=== PATIENT | male | born 1950 | race Caucasian/White ===

== ENCOUNTER 2018-04-03 08:49 | Emergency (ER) | payer OTHER ==
[2018-04-03] MEDS: BENZONATATE 100 MG CAP PO (09:31)
[2018-04-03] MEDS: IPRATROPIUM 0.5MG/ALBUTEROL 2.5MG INH SOL UD 3ML (DUONEB)(J7620) NEB (09:33)
[2018-04-03 10:21] LABS: BASO % 0.3 % (0.0-1.0); EOS # 0.2 10^3/uL (0.0-0.50); EOS % 2.2 % (0.0-3.0); HEMATOCRIT 48.3 % (42.0-52.0); HEMOGLOBIN 15.9 g/dl (13.5-17.5); IMMATURE GRANULOCYTE % 0.3 % (0-3.0); LYMPH # 2.3 10^3/uL (1.5-4.5); LYMPH % 28.9 % (24.0-44.0); MEAN CORPUSCULAR HEMOGLOBIN 27.7 pg (27.0-33.0); MEAN CORPUSCULAR HGB CONC 32.9 g/dl (32.0-36.5); MEAN CORPUSCULAR VOLUME 84.3 fl (80.0-96.0); MONO # 0.6 10^3/uL (0.0-0.8); NEUTROPHILS # 4.9 10^3/uL (1.8-7.7); NEUTROPHILS % 61.3 % (36.0-66.0); PLATELET COUNT, AUTOMATED 221 10^3/uL (150-450); RED BLOOD COUNT 5.73 10^6/uL (4.30-6.10); RED CELL DISTRIBUTION WIDTH 14.9 % (11.5-14.5); WHITE BLOOD COUNT 7.9 10^3/uL (4.0-10.0)
[2018-04-03 10:53] LABS: POS COUNT POS FLAG
[2018-04-03 10:58] LABS: D-DIMER QUANT 367.2 ng/ml (<500)
[2018-04-03 11:11] LABS: ANION GAP 6 MEQ/L (8-16); BLOOD UREA NITROGEN 15 MG/DL (7-18); CALCIUM LEVEL 9.1 MG/DL (8.8-10.2); CARBON DIOXIDE LEVEL 31 MEQ/L (21-32); CHLORIDE LEVEL 101 MEQ/L (98-107); CPK CREATINE PHOSPHOKINASE 105 U/L (39-308); CREATININE FOR GFR 1.23 MG/DL (0.70-1.30); GLOMERULAR FILTRATION RATE > 60.0 (>42); GLUCOSE, FASTING 124 MG/DL (70-100); MB/CK RELATIVE INDEX 1.71 (< OR =4); NT-PRO BNP 45 PG/ML (<125); POTASSIUM SERUM 3.7 MEQ/L (3.5-5.1); SODIUM LEVEL 138 MEQ/L (136-145); TROPONIN I < 0.02 NG/ML (< 0.10)
== END 2018-04-03 13:28 | disposition home or self-care (01) ==
LOC: M ED 08:49
DX: J06.9 Acute upper respiratory infection, unspecified (principal); R60.9 Edema, unspecified; I10 Essential (primary) hypertension; Z79.899 Other long term (current) drug therapy; M79.89 Other specified soft tissue disorders
CPT/HCPCS: 71046

== ENCOUNTER 2018-07-31 04:10 | Emergency (ER) | payer MEDICARE, OTHER ==
[~2018-07-31] VITALS: Ht 180.3 cm; Wt 147.7 kg
[~2018-07-31 04:10] MED LIST: ATEN25TA PO; BENZ200C70 PO; HYDR12.55 PO; MUCI600T31 PO; PROAAER10 INH; ROBI1LIQ9 PO; TESS100C PO
[2018-07-31] MEDS ORDERED: ROSU20TA4 PO (04:22)
[2018-07-31] MEDS ORDERED: ASPI81CH32 PO (04:22)
[2018-07-31] MEDS ORDERED: METF500T13 PO (04:22)
[2018-07-31] MEDS ORDERED: ALLO100T PO (04:22)
[2018-07-31] MEDS ORDERED: INDO50CA PO (04:22)
[2018-07-31] MEDS ORDERED: ISOVUE-370 76% 100ML VIAL (Q9967) As Ordered ONE (05:15)
[2018-07-31 05:40] LABS: BASO % 0.2 % (0.0-1.0); EOS # 0.2 10^3/uL (0.0-0.50); EOS % 1.3 % (0.0-3.0); HEMATOCRIT 46.6 % (42.0-52.0); HEMOGLOBIN 15.1 g/dl (13.5-17.5); LYMPH # 1.7 10^3/uL (1.5-4.5); LYMPH % 13.8 % (24.0-44.0); MEAN CORPUSCULAR HEMOGLOBIN 27.4 pg (27.0-33.0); MEAN CORPUSCULAR HGB CONC 32.4 g/dl (32.0-36.5); MEAN CORPUSCULAR VOLUME 84.4 fl (80.0-96.0); MONO # 0.7 10^3/uL (0.0-0.8); MONO % 5.5 % (0.0-5.0); NEUTROPHILS # 9.9 10^3/uL (1.8-7.7); NEUTROPHILS % 78.9 % (36.0-66.0); PLATELET COUNT, AUTOMATED 273 10^3/uL (150-450); RED BLOOD COUNT 5.52 10^6/uL (4.30-6.10); WHITE BLOOD COUNT 12.6 10^3/uL (4.0-10.0)
[2018-07-31 05:51] LABS: INR 1.12; PROTHROMBIN TIME 14.6 SECONDS (12.1-14.4)
[2018-07-31 05:52] LABS: PARTIAL THROMBOPLASTIN TIME 34.9 SECONDS (25.4-37.6)
[2018-07-31 06:14] LABS: BLOOD UREA NITROGEN 14 MG/DL (7-18); CALCIUM LEVEL 8.8 MG/DL (8.8-10.2); CARBON DIOXIDE LEVEL 30 MEQ/L (21-32); CHLORIDE LEVEL 100 MEQ/L (98-107); CPK CREATINE PHOSPHOKINASE 93 U/L (39-308); GLOMERULAR FILTRATION RATE > 60.0 (>42); GLUCOSE, FASTING 144 MG/DL (70-100); MB/CK RELATIVE INDEX 1.83 (< OR =4); POTASSIUM SERUM 3.9 MEQ/L (3.5-5.1); SODIUM LEVEL 139 MEQ/L (136-145); TROPONIN I < 0.02 NG/ML (< 0.10)
--- NOTE | 2018-07-31 07:34 | REPVR ---
EXAM: CT Head Without Contrast EXAM DATE/TIME: 07/31/2018 5:08 AM CLINICAL HISTORY: 68 years old, male; Signs and symptoms; Malaise or fatigue; Additional info: CVA - nursing interventions must not delay CT TECHNIQUE: Axial computed tomography images of the head/brain without contrast. All CT scans at this facility use at least one of these dose optimization techniques: automated exposure control; mA and/or kV adjustment per patient size (includes targeted exams where dose is matched to clinical indication); or iterative reconstruction. COMPARISON: No relevant prior studies available. FINDINGS: Brain: Normal. No hemorrhage. No significant white matter disease. No edema. Ventricles: Normal. No ventriculomegaly. Bones/joints: Normal. No acute fracture. Sinuses: Normal as visualized. No acute sinusitis. Mastoid air cells: Normal as visualized. No mastoid effusion. Soft tissues: Normal. Other findings: Hemispheric volume loss. IMPRESSION: 1. No acute intracranial process. Electronically signed by: Caitlyn Hernadez On 07/31/2018 07:33:43 AM
[2018-07-31 07:40] VITALS: BP 118/71
--- NOTE | 2018-07-31 07:43 | REPVR ---
EXAM: CT Angiography Chest With Contrast EXAM DATE/TIME: 07/31/2018 5:08 AM CLINICAL HISTORY: 68 years old, male; Pain; Chest pain; Type not specified TECHNIQUE: Axial computed tomographic angiography images of the chest with intravenous contrast using CT angiography protocol. All CT scans at this facility use at least one of these dose optimization techniques: automated exposure control; mA and/or kV adjustment per patient size (includes targeted exams where dose is matched to clinical indication); or iterative reconstruction. Coronal and sagittal reformatted images were created and reviewed. MIP reconstructed images were created and reviewed. CONTRAST: 75 ml of iso administered intravenously. COMPARISON: CR PORTABLE CHEST X-RAY 07/31/2018 5:33 AM FINDINGS: Pulmonary arteries: Partial motion degradation. This limits detailed assessment of distal pulmonary arterial structures. While there is no definite evidence of dominant filling defect within the main pulmonary trunk or main right and left pulmonary arteries, and accurate assessment of distal segmental and subsegmental arteries cannot accurately be determined. Aorta: Normal. No aortic aneurysm. No aortic dissection. Lungs: Minor groundglass opacities within both lungs. Pleural space: Normal. No pneumothorax. No pleural effusion. Heart: Right to left ventricular ratio 0.9-1.0. Intraperitoneal space: Trace calcification thoracic aortic arch. Lymph nodes: Unremarkable. No enlarged lymph nodes. Bones/joints: And degenerative change of thoracic spine. Soft tissues: Unremarkable. IMPRESSION: 1. Excessive motion limits assessment of segmental and subsegmental arteries. For accurate determination or complete exclusion of pulmonary embolus, repeat examination would be required with appropriate breath-hold. 2. Degenerative changes thoracic spine. 3. Ground glass opacities bilaterally. 4. Cardiomegaly. Electronically signed by: Caitlyn Hernadez On 07/31/2018 07:43:17 AM
--- NOTE | 2018-07-31 08:12 | REP ---
clinical: Cerebrovascular accident . Comparison: 04/03/2018 the . Findings: The mediastinum and cardiac silhouette are stable. Cardiomegaly is again suggested. The lung goodson are clear without acute consolidation, effusion, or pneumothorax. Skeletal structures are intact. Impression: No acute cardiopulmonary process appreciated. Electronically Signed by Ashwin Hoffmann MD 07/31/2018 08:04 A
--- NOTE | 2018-08-01 09:13 | ECGEPIP ---
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
--- NOTE | 2018-08-01 12:03 | ED PDOC ---
Post-Departure Follow-Up dr kim faxed formal report of cta for fu Sylvia Jaime MD Aug 01, 2018 12:03
== END 2018-07-31 08:02 | disposition home or self-care (01) ==
LOC: M ED 04:10
DX: G47.00 Insomnia, unspecified (principal); R07.9 Chest pain, unspecified; Z79.899 Other long term (current) drug therapy; Z79.82 Long term (current) use of aspirin; Z79.84 Long term (current) use of oral hypoglycemic drugs
CPT/HCPCS: 70450; 71045; 71275; 80048; 82550; 82553; 84484; 85025; 85610; 85730; 86850; 86900; 86901; 93005; 93041; 94760; 99285; Q9967

== ENCOUNTER → 2018-08-03 | Outpatient (CLI) | payer MEDICARE ==
[~2018-08-03] MED LIST changes: +ALLO100T PO; +ASPI81CH32 PO; +INDO50CA PO; +METF500T13 PO; +ROSU20TA4 PO
--- NOTE | 2018-08-03 14:12 | REP ---
Clinical: Localized mass . Comparison: 07/31/2018 . Technique: PA and lateral. Findings: The mediastinum and cardiac silhouette are normal. The lung goodson are clear and without acute consolidation, effusion, or pneumothorax. The skeletal structures are intact and normal. Impression: 1. No acute cardiopulmonary process. Electronically Signed by Ashwin Hoffmann MD 08/03/2018 02:04 P
[2018-08-03 15:41] LABS: BASO % 0.2 % (0.0-1.0); EOS # 0.1 10^3/uL (0.0-0.50); EOS % 1.2 % (0.0-3.0); HEMATOCRIT 46.8 % (42.0-52.0); HEMOGLOBIN 14.7 g/dl (13.5-17.5); LYMPH # 1.8 10^3/uL (1.5-4.5); MEAN CORPUSCULAR HEMOGLOBIN 27.3 pg (27.0-33.0); MEAN CORPUSCULAR HGB CONC 31.4 g/dl (32.0-36.5); MONO # 0.5 10^3/uL (0.0-0.8); MONO % 5.4 % (0.0-5.0); NEUTROPHILS # 7.3 10^3/uL (1.8-7.7); NEUTROPHILS % 74.8 % (36.0-66.0); PLATELET COUNT, AUTOMATED 305 10^3/uL (150-450); RED BLOOD COUNT 5.38 10^6/uL (4.30-6.10); WHITE BLOOD COUNT 9.7 10^3/uL (4.0-10.0)
[2018-08-03 16:02] LABS: ALBUMIN 3.2 GM/DL (3.2-5.2); ALT/SGPT 36 U/L (12-78); BILIRUBIN,TOTAL 0.5 MG/DL (0.2-1.0); BLOOD UREA NITROGEN 13 MG/DL (7-18); CALCIUM LEVEL 8.9 MG/DL (8.8-10.2); CARBON DIOXIDE LEVEL 32 MEQ/L (21-32); CHLORIDE LEVEL 100 MEQ/L (98-107); CREATININE FOR GFR 1.16 MG/DL (0.70-1.30); FREE T4 1.12 NG/DL (0.76-1.46); GLOMERULAR FILTRATION RATE > 60.0 (>42); GLUCOSE, FASTING 128 MG/DL (70-100); POTASSIUM SERUM 4.2 MEQ/L (3.5-5.1); SODIUM LEVEL 140 MEQ/L (136-145); TOTAL PROTEIN 6.7 GM/DL (6.4-8.2)
== END ==
LOC: M WUC 13:50
PROVIDERS: ATTEND Physician Assistant
DX: R22.41 Localized swelling, mass and lump, right lower limb (principal); R53.83 Other fatigue

== ENCOUNTER → 2019-03-17 | Outpatient (CLI) | payer MEDICARE ==
[~2019-03-17] MED LIST changes: -ASPI81CH32 PO; +ASPI81CH33 PO; -INDO50CA PO; +INDO50CA91 PO; -ROSU20TA4 PO; +ROSU20TA5 PO
[2019-03-17 20:38] LABS: BASO % 0.3 % (0.0-1.0); EOS # 0.2 10^3/uL (0.0-0.5); EOS % 1.9 % (0.0-3.0); HEMATOCRIT 48.8 % (42.0-52.0); HEMOGLOBIN 15.5 g/dl (13.5-17.5); LYMPH # 2.4 10^3/uL (1.5-5.0); LYMPH % 22.6 % (24.0-44.0); MEAN CORPUSCULAR HEMOGLOBIN 28.7 pg (27.0-33.0); MEAN CORPUSCULAR HGB CONC 31.8 g/dl (32.0-36.5); MEAN CORPUSCULAR VOLUME 90.4 fl (80.0-96.0); MONO # 0.7 10^3/uL (0.0-0.8); MONO % 6.8 % (0.0-5.0); NEUTROPHILS # 7.2 10^3/uL (1.5-8.5); NEUTROPHILS % 68.1 % (36.0-66.0); PLATELET COUNT, AUTOMATED 277 10^3/uL (150-450); WHITE BLOOD COUNT 10.6 10^3/uL (4.0-10.0)
[2019-03-17 21:05] LABS: ALBUMIN 3.2 GM/DL (3.2-5.2); ALT/SGPT 30 U/L (12-78); BILIRUBIN,TOTAL 0.5 MG/DL (0.2-1.0); BLOOD UREA NITROGEN 13 MG/DL (7-18); CALCIUM LEVEL 9.2 MG/DL (8.8-10.2); CARBON DIOXIDE LEVEL 36 MEQ/L (21-32); CHLORIDE LEVEL 99 MEQ/L (98-107); CREATININE FOR GFR 0.96 MG/DL (0.70-1.30); FREE T4 1.01 NG/DL (0.76-1.46); GLOMERULAR FILTRATION RATE > 60.0 (>42); GLUCOSE, FASTING 96 MG/DL (70-100); POTASSIUM SERUM 4.1 MEQ/L (3.5-5.1); SODIUM LEVEL 141 MEQ/L (136-145); TOTAL PROTEIN 6.7 GM/DL (6.4-8.2)
[2019-03-20 00:06] LABS: Lyme Disease IgG/IgM Antibodie <0.91 ISR (0.00-0.90); Lyme Disease IgM Ab Quantitati <0.80 index (0.00-0.79)
== END ==
LOC: M WUC 17:39
PROVIDERS: ATTEND Physician Assistant
DX: R63.4 Abnormal weight loss (principal)

== ENCOUNTER 2019-05-03 08:34 | Inpatient (IN) | payer MEDICARE ==
[~2019-05-03] VITALS: Ht 177.8 cm; Wt 125.6 kg
[2019-05-03] MEDS ORDERED: ATEN50TA2 PO (08:47)
[2019-05-03] MEDS ORDERED: HYDR12CA PO (08:47)
[2019-05-03 09:12] LABS: BASO % 0.2 % (0.0-1.0); EOS # 0.1 10^3/uL (0.0-0.5); EOS % 1.4 % (0.0-3.0); LYMPH # 1.8 10^3/uL (1.5-5.0); LYMPH % 18.7 % (24.0-44.0); MEAN CORPUSCULAR HEMOGLOBIN 28.3 pg (27.0-33.0); MEAN CORPUSCULAR HGB CONC 31.6 g/dl (32.0-36.5); MEAN CORPUSCULAR VOLUME 89.4 fl (80.0-96.0); MONO # 0.6 10^3/uL (0.0-0.8); MONO % 6.5 % (0.0-5.0); NEUTROPHILS # 6.8 10^3/uL (1.5-8.5); NEUTROPHILS % 72.7 % (36.0-66.0); PLATELET COUNT, AUTOMATED 228 10^3/uL (150-450); RED BLOOD COUNT 5.59 10^6/uL (4.30-6.10); WHITE BLOOD COUNT 9.4 10^3/uL (4.0-10.0)
[2019-05-03 09:31] LABS: HEMOGLOBIN 15.8 g/dl (13.5-17.5)
[2019-05-03 09:32] LABS: BLOOD UREA NITROGEN 12 MG/DL (7-18); CALCIUM LEVEL 9.1 MG/DL (8.8-10.2); CARBON DIOXIDE LEVEL 37 MEQ/L (21-32); CHLORIDE LEVEL 100 MEQ/L (98-107); CPK CREATINE PHOSPHOKINASE 61 U/L (39-308); CREATININE FOR GFR 0.91 MG/DL (0.70-1.30); GLOMERULAR FILTRATION RATE > 60.0 (>42); GLUCOSE, FASTING 125 MG/DL (70-100); MB/CK RELATIVE INDEX 3.28 (< OR =4); NT-PRO BNP 125 PG/ML (<125); SODIUM LEVEL 141 MEQ/L (136-145); TROPONIN I < 0.02 NG/ML (< 0.10)
--- NOTE | 2019-05-03 09:43 | REP ---
Portable chest x-ray: Single view. History: Shortness of breath. Comparison chest x-ray: August 03, 2018. Findings: The lungs are exposed at a rather low level of inspiration today. This magnifies the heart. No infiltrate is seen. There is no visible pleural effusion. No bony abnormality. Impression: Low level of inspiration. Otherwise no acute disease seen. Electronically Signed by Emmanuel Renner MD 05/03/2019 09:35 A
--- NOTE | 2019-05-03 09:51 | REP ---
CT brain: 05/03/2019. Indication: Dizziness. Comparison: 07/31/2018. Technique: Unenhanced axial CT images of the brain were obtained from skull base to vertex. Findings: There is no acute intracranial hemorrhage, acute cortical infarction, mass effect, hydrocephalus or acute calvarial fracture. Mild diffuse volume loss is noted. Impression: No acute intracranial process. Electronically Signed by Jaiden Mcleod DO 05/03/2019 09:43 A
[2019-05-03 10:56] LABS: AMPHETAMINES LEVEL URINE NEGATIVE (NEGATIVE); BARBITURATES URINE NEGATIVE (NEGATIVE); BENZODIAZEPINES URINE NEGATIVE (NEGATIVE); CANNABINOIDS URINE NEGATIVE (NEGATIVE); COCAINE METABOLITE URINE NEGATIVE (NEGATIVE); METHADONE URINE NEGATIVE (NEGATIVE); OPIATES URINE NEGATIVE (NEGATIVE); PHENCYCLIDINE URINE NEGATIVE (NEGATIVE)
[2019-05-03 11:24] LABS: ACETAMINOPHEN LEVEL < 2.0 UG/ML (10.0-30.0); ETHYL ALCOHOL (ETHANOL) < 0.003 % (0.000-0.010); SALICYLATE LEVEL < 1.7 MG/DL (5.0-30.0)
[2019-05-03] MEDS ORDERED: ADVI200T PO (12:40)
[2019-05-03] MEDS ORDERED: ASPI81TA26 PO (12:40)
[2019-05-03] MEDS ORDERED: RA S25CA PO (12:40)
--- NOTE | 2019-05-03 14:44 | HPEPDOC ---
General Date of Admission Date of Service: May 03, 2019 Chief Complaint The patient is a 69-year-old male admitted with a reason for visit of SOB. Source: Patient, Family Exam Limitations: Garbled speech Timing/Duration: Week(s), Changing over time Severity: Moderate Associated Symptoms: Cough, Headaches, Shortness of breath, Weakness, Other (right lower extremity swelling) History of Present Illness This is a 69-year-old male presenting with complaints of altered speech and difficulty swallowing for 2 - 2 1/2 months. This appears to have been of acute onset. It is accompanied by left arm and hand weakness with pain. He states he initially had sensation of pins and needles to his tongue. He's also had decreased or altered taste. He requires that his food be finely chopped and served with gravies and sauces. He reports occasional choking episodes. He notes a decrease in his weight from 315 pounds to 275 pounds over the past 3 months. He denies any problems with liquids. He has not had nausea or vomiting. He notes occasional headache, mild abdominal pain and lightheadedness. He's also had insomnia. He has not had changes to his bowel habits. The patient has also had remarkable difficulty with his speech. It has become slurred. His left upper extremity weakness is greatest with attempting to execute fine motor movements. He states he cannot use a nail clipper with his left hand but can hold a cup. He is right hand dominant. He denies any difficulty with standing or ambulation. He had his is also noted remarkable right lower extremity swelling. He has not had any pain with this. He has had shortness of breath and is unable to lie flat to sleep; he sleeps sitting up. He has not had any chest pain or wheezing, but has had shortness of breath. Lastly, he complains of frequent nocturnal urination due to his prostate. Home Medications Scheduled Aspirin (Aspirin EC) 81 Mg Tablet.dr, 81 MG PO QHS, (Reported) Atenolol (Atenolol) 50 Mg Tablet, 50 MG PO DAILY, (Reported) Diphenhydramine HCl (Sleep-Aid) 25 Mg Capsule, 50 MG PO QHS, (Reported) Hydrochlorothiazide (Hydrochlorothiazide) 12.5 Mg Capsule, 12.5 MG PO DAILY, (Reported) Rosuvastatin Calcium (Rosuvastatin Calcium) 20 Mg Tab, 20 MG PO DAILY, (Reported) Scheduled PRN Albuterol Sulfate (Proair Hfa) 108 Mcg/Act Aer, 2 PUFF INH Q6H PRN for SHORTNESS OF BREATH, (Reported) Ibuprofen (Advil) 200 Mg Tablet, 400 MG PO QID PRN for PAIN, (Reported) Allergies Coded Allergies: No Known Allergies (Unverified , 05/03/19) Past Medical History Medical History Past medical history appears to be remarkable for dyslipidemia, hypertension, nbo-ikgcxhw-htnxvrwyg diabetes mellitus Surgical History Patient denies ever having had any surgeries Family History Patient relates paternal history of carotid disease, prostate cancer and alcoholism. There is maternal history of Alzheimer's and alcoholism. Social History * Smoker: Denies (the patient has never smoked) Alcohol: Denies (the patient's alcohol use is been remote for 50 years) Drugs: denies Psychosocial History: No pertinent psych hx The patient is retired A-FIB/CHADSVASC A-FIB History Current/History of A-Fib/PAF?: No Current PO Anticoag Therapy: No Review of Systems Other systems 10 systems review is otherwise negative except as stated in the HPI. Physical Examination General Exam: Positive: Alert, Mild Distress Eye Exam: Positive: PERRLA, Conjunctiva & lids normal, Other Eye Symptoms (no scleral icterus or injection) ENT Exam: Positive: Atraumatic, Mucous membr. moist/pink (the patient has extremely poor dentition), Pharynx Normal (no tonsillar enlargement or lesions to the posterior pharynx), Tongue Midline, Nares Patent Neck Exam: Positive: Supple, Lymphadenopathy (no adenopathy); Negative: JVD, thyromegaly Chest Exam: Positive: Clear to auscultation (while sitting up in chair), Normal air movement, Other (the patient is not choking or coughing currently) Heart Exam: Positive: Rate Normal, Regular Rhythm, Normal S1, Normal S2; Negative: Murmurs, Rubs Abdomen Exam: Positive: Normal bowel sounds, Soft, Other (patient does have significant central obesity); Negative: Tenderness, Hepatospenomegaly Extremity Exam: Positive: Edema (patient has 3+ edema to his right lower extremity, the leg is otherwise nontender), Other (pulses are difficult to palpate bilaterally) Skin Exam: Positive: Nl turgor and temperature Neuro Exam: Positive: Normal Gait, Normal Speech (speech is dysarthric), Strength at 5/5 X4 ext (patient has normal competitive intelligence 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 He does not exhibit tremor. He does not have nystagmus.) Psych Exam: Positive: Mental status NL, Mood NL, Memory Intact, Oriented x 3 Vital Signs Vital Signs Date Time Temp Pulse Resp B/P (MAP) Pulse Ox O2 Delivery O2 Flow Rate FiO2 05/03/19 14:00 63 20 120/67 (84) 92 Room Air 05/03/19 08:34 98.1 Laboratory Data Labs 24H Laboratory Tests 2 05/03/19 08:52: Immature Granulocyte % (Auto) 0.5, Neutrophils (%) (Auto) 72.7H, Lymphocytes (%) (Auto) 18.7L, Monocytes (%) (Auto) 6.5H, Eosinophils (%) (Auto) 1.4, Basophils (%) (Auto) 0.2, Neutrophils # (Auto) 6.8, Lymphocytes # (Auto) 1.8, Monocytes # (Auto) 0.6, Eosinophils # (Auto) 0.1, Basophils # (Auto) 0.0, Nucleated Red Blood Cells % (auto) 0.0, Anion Gap 4L, Glomerular Filtration Rate > 60.0, Calcium Level 9.1, Total Creatine Kinase 61, Creatine Kinase MB 2.0, Creatine Kinase MB Relative Index 3.28, Troponin I < 0.02, XS-Qub-K-Type Natriuretic Peptide 125, Salicylates Level < 1.7L, Acetaminophen Level < 2.0L, Ethyl Alcohol Level < 0.003 05/03/19 10:16: Urine Opiates Screen NEGATIVE, Urine Methadone Screen NEGATIVE, Urine Barbiturates Screen NEGATIVE, Urine Phencyclidine Screen NEGATIVE, Urine Amphetamines Screen NEGATIVE, Urine Benzodiazepines Screen NEGATIVE, Urine Cocaine Metabolite Screen NEGATIVE, Urine Cannabinoids Screen NEGATIVE CBC/BMP Laboratory Tests 05/03/19 08:52 Assessment/Plan 1. Possible nonacute CVA. Patient is presenting with dysarthria, dysphagia and left upper extremity weakness. This had onset 2-1/2 months ago. Patient denies any other symptoms. CT scan is negative for any brain lesion, infarct or bleed. Patient states he cannot possibly tolerate an MRI as he is unable to lie flat and barely tolerated this CT scan. Given his family history of carotid disease we will at least look at carotid Dopplers. We will also obtain echocardiogram. He does not exhibit atrial fibrillation but has cardiomegaly. We will arrange for other radiologic testing as needed if he can tolerate it. We will also need to consider other neurologic diagnoses. 2. Dysarthria/dysphagia Plans are to obtain consultation with speech therapy services for speech and swallow evaluation. 3. Weakness. Patient will be assessed by physical therapy and occupational therapy services. 4. Shortness of breath. Patient has right lower extremity edema, cardiomegaly and cannot tolerate lying flat; he sleeps upright in a chair. Lower extremity Dopplers and echocardiogram will be obtained to rule out DVT or congestive heart failure. Plan / VTE VTE Prophylaxis Ordered?: Yes (Lovenox) Plan Diet: Continue Current Activity: Encourage Ambulation Therapy: PT, OT, Speech Diagnostics: Check Labs, Repeat Labs in AM, Ultrasound, TTE Anticipated Discharge: Home KENYETTA ANTOINE MD May 03, 2019 14:44
[2019-05-03] MEDS ORDERED: ACETAMINOPHEN TAB 650MG DOSE (2X325MG) PO PRN (14:45)
[2019-05-03] MEDS ORDERED: GLUCOSE 4 GM CHEW TABLET PO PRN (14:45)
[2019-05-03] MEDS ORDERED: GLUCAGON FOR INJ 1 MG VIAL (J1610) SC PRN (14:45)
[2019-05-03] MEDS ORDERED: DEXTROSE 50% 50 ML SYRINGE IV PRN (14:45)
--- NOTE | 2019-05-03 16:54 | REP ---
Clinical: Severe dysarthria . Technique: Evans scale and color Doppler evaluation using linear high frequency transducer Findings: Two-dimensional evans scale and color images demonstrate mild atheromatous plaquing with no appreciable narrowing. Color Doppler interrogation demonstrates normal arterial wave patterns and velocities with elements of spectral broadening. Vertebral arteries were not visualized. RIGHT (cm/s) LEFT (cm/s) ICA peak systolic velocity 46.8 44.8 ICA diastolic velocity 13.4 17.0 ECA peak systolic velocity 40.1 60.0 CCA peak systolic velocity 59.1 90.0 ICA/CCA ratio 0.79 0.50 Impression: 1. Limited examination. 2. No hemodynamically significant areas of narrowing or stenosis appreciated. Based on set standards narrowing falls within the less than 50% range. Electronically Signed by Ashwin Hoffmann MD 05/03/2019 04:45 P
[2019-05-03] MEDS: HumaLOG INSULIN (NovoLOG) PER UNIT SC SCH ×2 (17:30→21:00)
[2019-05-03 17:36] VITALS: BP 125/85
[2019-05-03] MEDS: ENOXAPARIN 40 MG/0.4 ML SYRINGE (J1650) SC SCH (18:02)
[2019-05-03] MEDS: ASPIRIN 81 MG ENTERIC TAB PO SCH (21:23)
[2019-05-03] MEDS: IBUPROFEN 400 MG TAB PO PRN (21:23)
[2019-05-03 22:00] VITALS: BP 140/73
--- NOTE | 2019-05-03 22:39 | ECGEPIP ---
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
[2019-05-04] MEDS: RAMELTEON 8 MG TAB (ROZEREM) PO SCH ×2 (00:34→20:35)
[2019-05-04 06:00] VITALS: BP 116/78
[2019-05-04 06:13] LABS: HEMATOCRIT 50.6 % (42.0-52.0); HEMOGLOBIN 15.9 g/dl (13.5-17.5); MEAN CORPUSCULAR HGB CONC 31.4 g/dl (32.0-36.5); MEAN CORPUSCULAR VOLUME 89.2 fl (80.0-96.0); PLATELET COUNT, AUTOMATED 245 10^3/uL (150-450); RED BLOOD COUNT 5.67 10^6/uL (4.30-6.10); WHITE BLOOD COUNT 10.1 10^3/uL (4.0-10.0)
[2019-05-04 06:21] LABS: HEMOGLOBIN A1c 5.7 %
[2019-05-04 06:43] LABS: BLOOD UREA NITROGEN 13 MG/DL (7-18); CALCIUM LEVEL 9.6 MG/DL (8.8-10.2); CARBON DIOXIDE LEVEL 38 MEQ/L (21-32); CHLORIDE LEVEL 96 MEQ/L (98-107); CREATININE FOR GFR 0.94 MG/DL (0.70-1.30); FREE T4 1.01 NG/DL (0.76-1.46); GLOMERULAR FILTRATION RATE > 60.0 (>42); GLUCOSE, FASTING 117 MG/DL (70-100); POTASSIUM SERUM 3.9 MEQ/L (3.5-5.1); SODIUM LEVEL 138 MEQ/L (136-145)
[2019-05-04] MEDS: IBUPROFEN 400 MG TAB PO PRN ×2 (06:47→20:35)
--- NOTE | 2019-05-04 07:33 | REP ---
Clinical: Right lower extremity pain and swelling with shortness of breath . Technique: Evans scale and color Doppler evaluation using linear high frequency transducer. Findings: Ultrasound examination of the right lower extremity deep venous structures from the common femoral vein to the popliteal vein demonstrates normal compressibility flow and wave patterns in response to respiration and augmentation. There is no evidence for deep venous thrombosis. Impression: No evidence for deep venous thrombosis. Electronically Signed by Ashwin Hoffmann MD 05/03/2019 04:02 P
[2019-05-04] MEDS: ROSUVASTATIN 10 MG TAB (CRESTOR) PO SCH (09:21)
[2019-05-04] MEDS: ENOXAPARIN 40 MG/0.4 ML SYRINGE (J1650) SC SCH (09:21)
[2019-05-04] MEDS: hydroCHLOROthiazide 12.5 MG CAPSULE PO SCH (09:21)
[2019-05-04] MEDS: HumaLOG INSULIN (NovoLOG) PER UNIT SC SCH ×4 (09:22→20:36)
[2019-05-04] MEDS: ATENOLOL 50 MG TAB PO SCH (09:24)
[2019-05-04] MEDS ORDERED: DEXTROMETHORPHAN 60MG/10ML SUSP 90ML BTL(DELSYM) PO PRN (10:00)
[2019-05-04] MEDS: FAMOTIDINE 20 MG TAB PO SCH ×2 (10:36→20:35)
--- NOTE | 2019-05-04 13:37 | IPNPDOC ---
Text Note Date of Service The patient was seen on 05/04/19. NOTE SUBJECTIVE: Mr. Ulloa is doing well. He presented with some left upper extremity weakness and dysphagia with dysarthria. Prior stroke injury is suspected. He is being evaluated by multiple therapy services. OBJECTIVE: Please see vital signs below Physical exam: HENT: Neck is generally supple with no adenopathy or thyromegaly, moist oral mucosa, patient has extremely poor dentition, there is no tonsillar enlargement, complains of TMJ discomfort Cardiovascular: Regular rate and rhythm, no appreciable murmur. Abdomen: Soft, nontender, nondistended, notable central obesity Extremities: The patient does have right lower extremity edema, which is substantially improved after his leg has been elevated. Pedal pulses remain difficult to palpate but are present. Neuro: Patient continues with significant dysarthria, although speech is intelligible, continues with dysphagia, the patient does exhibit tongue fasciculations, he does not have visual changes, he does have very subtle left- sided lip weakness, but no overt facial droop, continues with fine motor weakn ess to his left upper extremity. ASSESSMENT/PLAN: 1. Probable nonacute CVA. Patient presents with symptoms of dysphagia, dysarthria, left lip weakness, and fine motor weakness to his left upper extremity, especially his left hand. Symptoms had onset 21/2 - 3 months ago. They have gotten slightly better. Patient likely had a CVA at that time. Head CT is negative; patient states he will not tolerate an MRI. Carotid Doppler studies are negative for stenosis. Thyroid studies are within normal limits. Patient is undergoing evaluation by physical, occupational and speech therapy services to assess for deficits and needs. Patient is most comfortable with pured diet; radiologic swallow study is pending. Aspirin and statin are appropriate. Other diagnoses can be considered such as early ALS, myasthenia gravis or other neuro disease. Patient will need to follow-up with neurology services as well. 2. Lower extremity swelling. This has improved with elevation of the right leg. Lower extremity Doppler has ruled out DVT. As this symptom was accompanied by shortness of breath concern was raised for congestive heart failure; echocardiogram result is pending. 3. Quz-ujwrvwe-onzhfajfj diabetes mellitus. Patient was diagnosed with this by his PCP and placed on a regimen of metformin. Patient reduce his metformin to 500 mg daily. He then took himself off of the metformin. Glycated hemoglobin is 5.7, which would be consistent with well controlled diabetes. We will continue with sliding scale insulin to be used for any hyperglycemia. VS,Fishbone, I+O VS, Fishbone, I+O Laboratory Tests 05/04/19 05:45 Vital Signs Date Time Temp Pulse Resp B/P (MAP) Pulse Ox O2 Delivery O2 Flow Rate FiO2 05/04/19 09:24 74 114/69 05/04/19 06:00 97.3 15 92 Room Air I&O- Last 24 Hours up to 6 AM 05/04/19 06:00 Intake Total 600 ml Output Total 1400 ml Balance -800 ml KENYETTA ANTOINE MD May 04, 2019 13:09
[2019-05-04] MEDS ORDERED: VARIBAR PUDDING 40% w/v 230ML TUBE As Ordered ONE (13:55)
[2019-05-04] MEDS ORDERED: VARIBAR NECTAR 40% w/v 240ML SUSP BTL As Ordered ONE (13:55)
[2019-05-04] MEDS ORDERED: E-Z-PAQUE 96% w/w SUSP 176GM BTL As Ordered ONE (13:55)
[2019-05-04 14:00] VITALS: BP 116/69
[2019-05-04] MEDS: NYSTATIN 100,000 UNITS/GM TOPICAL PWD 15 GM TOP SCH ×2 (16:11→20:36)
[2019-05-04] MEDS: ASPIRIN 81 MG ENTERIC TAB PO SCH (20:34)
[2019-05-04 22:00] VITALS: BP 145/85
[2019-05-05] MEDS: IBUPROFEN 400 MG TAB PO PRN ×2 (01:03→18:28)
[2019-05-05 06:00] VITALS: BP 119/68
--- NOTE | 2019-05-05 06:08 | ECHO ---
DATE OF STUDY: 05/04/2019 DATE OF : 1950 AGE: 69 REFERRING PROVIDER: Dr. Ashley Leary PATIENT LOCATION: Room 4208 REASON FOR STUDY: Cardiomegaly. 2-D MEASUREMENTS: IVS: 1.6 cm LV: 4.3 cm LVPW: 1.6 cm LA: 4.0 cm Aorta: 3.6 cm DOPPLER MEASUREMENTS: Peak velocity across the aortic valve: 1.4 m/s Peak velocity across the LVOT: 1.1 m/s Mitral E: 0.53 Mitral A: 0.70 Ratio: Less than 1.0 2-D COMMENTS: 1. Technically very limited study due to poor acoustic window. 2. The left ventricular size is normal with increased left ventricular wall thickness. Left ventricular systolic function appeared to be normal in limited views with estimated left ventricular ejection fraction (LVEF) of 55-60%. 3. The left atrium appeared to be normal. The right atrium and the right ventricle also appeared to be normal in limited views. 4. Normal aortic root. 5. Trace to small pericardial effusion noted, no evidence of cardiac tamponade. 6. The aortic valve, the mitral valve, and the tricuspid valve appear to be normal in limited views. The pulmonic valve and proximal pulmonary artery branches were not well visualized. 6. The inferior vena cava was not visualized. DOPPLER: No significant valvular abnormalities detected. Abnormal relaxation pattern was noted across the mitral valve leaflets as well as the mitral valve annulus consistent with features of grade 1 left ventricular diastolic dysfunction. IMPRESSION: 1. Normal global left ventricular systolic function with probably moderate concentric ventricular hypertrophy. There are some features of left ventricular diastolic dysfunction manifested by abnormal relaxation. 2. No significant valvular abnormalities detected. 3. Trace to small pericardial effusion noted, no evidence of cardiac tamponade. 4. The study was technically limited due to poor acoustic window. [facility]
[2019-05-05] MEDS: HumaLOG INSULIN (NovoLOG) PER UNIT SC SCH ×4 (07:30→20:26)
[2019-05-05] MEDS: ENOXAPARIN 40 MG/0.4 ML SYRINGE (J1650) SC SCH (08:16)
[2019-05-05] MEDS: FAMOTIDINE 20 MG TAB PO SCH ×2 (08:17→21:15)
[2019-05-05] MEDS: ROSUVASTATIN 10 MG TAB (CRESTOR) PO SCH (08:17)
[2019-05-05] MEDS: hydroCHLOROthiazide 12.5 MG CAPSULE PO SCH (08:17)
[2019-05-05] MEDS: ATENOLOL 50 MG TAB PO SCH (08:18)
[2019-05-05] MEDS: NYSTATIN 100,000 UNITS/GM TOPICAL PWD 15 GM TOP SCH ×2 (08:19→21:16)
[2019-05-05 11:30] VITALS: BP 141/77
[2019-05-05 14:00] VITALS: BP 141/76
--- NOTE | 2019-05-05 14:39 | REP ---
COOKIE SWALLOW The procedure was performed under the direct supervision of Dr. Evans. The procedure was performed with the Lima Powell from speech pathology present. 5 ml aliquots of thin consistency barium was administered. There is laryngeal penetration. The patient refused to complete the exam. The detailed report of this examination will be provided by speech pathology. 0.3 minutes of fluoroscopy time was utilized for this procedure. Electronically Signed by ANGELA Gomez 05/04/2019 04:50 P Electronically Signed by Niegl Evnas MD 05/05/2019 02:31 P
[2019-05-05] MEDS ORDERED: FUROSEMIDE 40 MG/4 ML VIAL (J1940) IV ONE (14:45)
[2019-05-05] MEDS: DOCUSATE SODIUM 100 MG CAP PO SCH ×2 (15:17→21:00)
--- NOTE | 2019-05-05 19:22 | IPNPDOC ---
Text Note Date of Service The patient was seen on 05/05/19. NOTE SUBJECTIVE: Mr. Ulloa is doing well. He presented with some left upper extremity weakness and dysphagia with dysarthria. Prior stroke event is highly likely with current residual injury. We have been trying to keep the patient updated and educated. He is demanding to be discharged to home. OBJECTIVE: Please see vital signs below Physical exam: HENT: Neck is generally supple with no adenopathy or thyromegaly, moist oral mucosa, patient has extremely poor dentition, there is no tonsillar enlargement, complains of TMJ discomfort Cardiovascular: Regular rate and rhythm, no appreciable murmur. Abdomen: Soft, nontender, nondistended, notable central obesity Extremities: The patient does have right lower extremity edema, which is substantially improved after his leg has been elevated. Pedal pulses remain difficult to palpate but are present. Neuro: Patient continues with significant dysarthria, although speech is intelligible, continues with dysphagia, the patient does exhibit tongue fasciculations, he does not have visual changes, he does have very subtle left- sided lip weakness, but no overt facial droop, continues with fine motor w eakness to his left upper extremity. ASSESSMENT/PLAN: 1. Probable nonacute CVA. Patient presents with symptoms of dysphagia, dysarthria, left lip weakness, and fine motor weakness to his left upper extremity, especially his left hand. Symptoms had onset 21/2 - 3 months ago. They have gotten slightly better. Patient likely had a CVA at that time. Head CT is negative; patient states he will not tolerate an MRI. Carotid Doppler studies are negative for stenosis. Thyroid studies are within normal limits. Patient has been evaluated by physical, occupational and speech therapy services to assess for deficits and needs. Patient is most comfortable with pured diet. Aspirin and statin are appropriate. Other diagnoses can be considered such as early ALS, myasthenia gravis or other neuro disease. Patient will need to follow-up with neurology services as well. 2. Lower extremity swelling. This has improved with elevation of the right leg. Lower extremity Doppler has ruled out DVT. As this symptom was accompanied by shortness of breath concern was raised for congestive heart failure; echocardiogram shows systolic ejection fraction of 55-60%. However, there is grade 1 diastolic dysfunction. Patient can be said to have at least chronic diastolic congestive heart failure and the addition of diuretic would be appropriate. 3. Umv-pyhhvyv-aaddnoheb diabetes mellitus. Patient was diagnosed with this by his PCP and placed on a regimen of metformin. Patient reduce his metformin to 500 mg daily. He then took himself off of the metformin. Glycated hemoglobin is 5.7, which would be consistent with well controlled diabetes. We will continue with sliding scale insulin to be used for any hyperglycemia. 4. Concern for aspiration. After some difficulty. Patient did have most of his barium swallow eval. Patient unfortunately did show penetration with thin liquids. This was to the level of the vocal folds. Patient was not noted to cough and required prompting. Cough was not found to be fully effective. This raises concern for aspiration. Thick liquids are recommended. VS,Fishbone, I+O VS, Fishbone, I+O Vital Signs Date Time Temp Pulse Resp B/P (MAP) Pulse Ox O2 Delivery O2 Flow Rate FiO2 05/05/19 14:00 97.9 67 20 141/76 (97) 92 Room Air I&O- Last 24 Hours up to 6 AM 05/05/19 06:00 Intake Total 1470 ml Output Total 1550 ml Balance -80 ml KENYETTA ANTOINE MD May 05, 2019 19:22
[2019-05-05] MEDS: SENNA 8.6 MG TAB (SENOKOT) PO SCH (21:00)
[2019-05-05] MEDS: RAMELTEON 8 MG TAB (ROZEREM) PO SCH (21:15)
[2019-05-05] MEDS: ASPIRIN 81 MG ENTERIC TAB PO SCH (21:15)
[2019-05-05 22:00] VITALS: BP 135/73
[2019-05-06] MEDS: IBUPROFEN 400 MG TAB PO PRN ×2 (03:22→09:28)
[2019-05-06 06:00] VITALS: BP 141/83
[2019-05-06] MEDS: HumaLOG INSULIN (NovoLOG) PER UNIT SC SCH ×2 (07:30→12:00)
[2019-05-06] MEDS: DOCUSATE SODIUM 100 MG CAP PO SCH (07:51)
[2019-05-06] MEDS: SENNA 8.6 MG TAB (SENOKOT) PO SCH (07:51)
[2019-05-06 08:11] LABS: BLOOD UREA NITROGEN 12 MG/DL (7-18); CARBON DIOXIDE LEVEL 39 MEQ/L (21-32); CHLORIDE LEVEL 93 MEQ/L (98-107); CREATININE FOR GFR 1.04 MG/DL (0.70-1.30); GLOMERULAR FILTRATION RATE > 60.0 (>42); GLUCOSE, FASTING 146 MG/DL (70-100); POTASSIUM SERUM 3.6 MEQ/L (3.5-5.1); SODIUM LEVEL 136 MEQ/L (136-145)
[2019-05-06 09:27] VITALS: BP 121/62
[2019-05-06] MEDS: ATENOLOL 50 MG TAB PO SCH (09:27)
[2019-05-06] MEDS: ROSUVASTATIN 10 MG TAB (CRESTOR) PO SCH (09:27)
[2019-05-06] MEDS: FAMOTIDINE 20 MG TAB PO SCH (09:27)
[2019-05-06] MEDS: ENOXAPARIN 40 MG/0.4 ML SYRINGE (J1650) SC SCH (09:27)
[2019-05-06] MEDS: NYSTATIN 100,000 UNITS/GM TOPICAL PWD 15 GM TOP SCH (09:28)
[2019-05-06] MEDS ORDERED: POTA20TA6 PO (11:20)
[2019-05-06] MEDS ORDERED: FAMO20TA PO (11:20)
[2019-05-06] MEDS ORDERED: FURO40TA2 PO (11:20)
--- NOTE | 2019-05-16 14:36 | DS.PDOC ---
Discharge Summary General Date of Admission May 03, 2019 at 14:44 Date of Discharge May 06, 2019 Discharge Summary PROCEDURES PERFORMED DURING STAY: [Echocardiogram]. ADMITTING DIAGNOSES: 1. [CVA]. DISCHARGE DIAGNOSES: 1. [CVA with residual deficits, dysarthria, dysphagia, LUE weakness, NIDDM, essential hypertension, dyslipidemia]. COMPLICATIONS/CHIEF COMPLAINT: Dysarthria Dysphagia. HISTORY OF PRESENT ILLNESS/HOSPITAL COURSE: [This was a 69-year-old male who presented with complaints of altered speech and difficulty swallowing for 2 - 2 1/2 months. This appeared to have been of acute onset. It was accompanied by left arm and hand weakness with pain. He stated he initially had sensation of pins and needles to his tongue. He also had decreased or altered taste. He required that his food be finely chopped and served with gravies and sauces. He reported occasional choking episodes. The patient also had remarkable difficulty with his speech. It had become very slurred. He did not have any difficulty with ambulation. Concern was raised that the patient had had a recent stroke event. Head CT was negative for any lesion or infarct. Vascular studies did not show any occlusions or stenoses. Echocardiogram showed chronic diastolic CHF.]. Mr. Ulloa was fully assessed by PT/OT/ST services. He was found to have deficits to his LUE mobility. He was also found to have moderate to severe speech and swallow deficits. He was placed on a texture-modified diet with instructions in swallow technique. DISCHARGE MEDICATIONS: Please see below. ALLERGIES: Please see below. PHYSICAL EXAMINATION ON DISCHARGE: VITAL SIGNS: Please see below. HENT: Neck is generally supple with no adenopathy or thyromegaly, moist oral mucosa, patient has extremely poor dentition, there is no tonsillar enlargement, complains of TMJ discomfort Cardiovascular: Regular rate and rhythm, no appreciable murmur. Abdomen: Soft, nontender, nondistended, notable central obesity Extremities: The patient does have right lower extremity edema, which is substantially improved after his leg has been elevated. Pedal pulses remain difficult to palpate but are present. Neuro: Patient continues with significant dysarthria, although speech is intelligible, continues with dysphagia, the patient does exhibit tongue fasciculations, he does not have visual changes, he does have very subtle left- sided lip weakness, but no overt facial droop, continues with fine motor weak ness to his left upper extremity. LABORATORY DATA: Please see below. IMAGING: PROGNOSIS: ACTIVITY: [As tolerated]. DIET: [Consistent carbohydrate, puree or ground texture, thickened liquids] DISCHARGE PLAN: [The patient is stable for discharge to home. Although he has demonstrated disability and aspiration risk the patient has also demonstrated noncompliance. Arrangements are made for follow up with a PCP; risks are high for readmission.] DISPOSITION: 01 Home, Self-Care. DISCHARGE INSTRUCTIONS: 1. . ITEMS TO FOLLOWUP ON ON OUTPATIENT: 1. . DISCHARGE CONDITION: [Stable]. TIME SPENT ON DISCHARGE: [40] minutes. Discharge Medications Scheduled Aspirin (Aspirin EC) 81 Mg Tablet.dr, 81 MG PO QHS, (Reported) Atenolol (Atenolol) 50 Mg Tablet, 50 MG PO DAILY, (Reported) Diphenhydramine HCl (Sleep-Aid) 25 Mg Capsule, 50 MG PO QHS, (Reported) Famotidine (Famotidine) 20 Mg Tablet, 20 MG PO BID Furosemide (Furosemide) 40 Mg Tablet, 1 TAB PO DAILY Potassium Chloride (Potassium Chloride) 20 Meq Tab.er.prt, 1 TAB PO DAILY Rosuvastatin Calcium (Rosuvastatin Calcium) 20 Mg Tab, 20 MG PO DAILY, (Reported) Scheduled PRN Albuterol Sulfate (Proair Hfa) 108 Mcg/Act Aer, 2 PUFF INH Q6H PRN for SHORTNESS OF BREATH, (Reported) Ibuprofen (Advil) 200 Mg Tablet, 400 MG PO QID PRN for PAIN, (Reported) Allergies Coded Allergies: No Known Allergies (Unverified , 05/03/19) KENYETTA ANTOINE MD May 16, 2019 14:36
== END 2019-05-06 12:55 | disposition home or self-care (01) | DRG 57 ==
LOC: M ED 08:34 → M ED INP 14:44 → M MSPAV 17:24
PROVIDERS: ADMIT Internal Medicine; ATTEND Internal Medicine
DX: I69.391 Dysphagia following cerebral infarction (principal); I69.334 Monoplegia of upper limb following cerebral infarction affecting left non-dominant side; R13.10 Dysphagia, unspecified; I69.322 Dysarthria following cerebral infarction; M62.81 Muscle weakness (generalized); R06.02 Shortness of breath; R22.41 Localized swelling, mass and lump, right lower limb; E78.5 Hyperlipidemia, unspecified; I10 Essential (primary) hypertension; E11.9 Type 2 diabetes mellitus without complications; Z79.82 Long term (current) use of aspirin; Z79.899 Other long term (current) drug therapy; Z79.84 Long term (current) use of oral hypoglycemic drugs

== ENCOUNTER 2019-06-24 13:25 | Emergency (ER) | payer OTHER, MEDICARE ==
[~2019-06-24] VITALS: Ht 167.6 cm; Wt 121.8 kg
[~2019-06-24 13:25] MED LIST changes: +ADVI200T PO; +ASPI81TA26 PO; +ATEN50TA2 PO; +FAMO20TA PO; +FURO40TA2 PO; +HYDR12CA PO; +POTA20TA6 PO; +RA S25CA PO
[2019-06-24] MEDS ORDERED: METF500T13 PO (13:41)
[2019-06-24] MEDS ORDERED: TRANEXAMIC ACID 100 MG/ML 10ML VIAL ONE (14:45)
[2019-06-24 15:00] LABS: HEMATOCRIT 54.1 % (42.0-52.0); HEMOGLOBIN 16.6 g/dl (13.5-17.5); MEAN CORPUSCULAR HEMOGLOBIN 27.8 pg (27.0-33.0); MEAN CORPUSCULAR HGB CONC 30.7 g/dl (32.0-36.5); MEAN CORPUSCULAR VOLUME 90.6 fl (80.0-96.0); PLATELET COUNT, AUTOMATED 293 10^3/uL (150-450); RED BLOOD COUNT 5.97 10^6/uL (4.30-6.10); WHITE BLOOD COUNT 17.7 10^3/uL (4.0-10.0)
[2019-06-24 15:09] LABS: INR 1.18; PROTHROMBIN TIME 14.7 SECONDS (11.8-14.0)
[2019-06-24 15:10] LABS: PARTIAL THROMBOPLASTIN TIME 35.5 SECONDS (25.0-38.4)
[2019-06-24 15:17] LABS: BLOOD UREA NITROGEN 19 MG/DL (7-18); CALCIUM LEVEL 8.7 MG/DL (8.8-10.2); CARBON DIOXIDE LEVEL 38 MEQ/L (21-32); CHLORIDE LEVEL 89 MEQ/L (98-107); CREATININE FOR GFR 0.83 MG/DL (0.70-1.30); GLOMERULAR FILTRATION RATE > 60.0 (>42); GLUCOSE, FASTING 126 MG/DL (70-100); SODIUM LEVEL 132 MEQ/L (136-145)
[2019-06-24 15:49] VITALS: BP 113/72
[2019-06-25] MEDS ORDERED: RA S25CA PO (02:02)
[2019-06-25] MEDS ORDERED: FURO40TA2 PO (02:02)
[2019-06-25] MEDS ORDERED: POTA1TAB14 PO (02:02)
[2019-06-25] MEDS ORDERED: FAMO20TA PO (02:02)
== END 2019-06-24 16:07 | disposition home or self-care (01) ==
LOC: M ED 13:25
DX: K08.89 Other specified disorders of teeth and supporting structures (principal); I10 Essential (primary) hypertension; J44.9 Chronic obstructive pulmonary disease, unspecified; E78.5 Hyperlipidemia, unspecified; Z79.899 Other long term (current) drug therapy; Z79.82 Long term (current) use of aspirin; F17.210 Nicotine dependence, cigarettes, uncomplicated

== ENCOUNTER 2019-06-25 00:23 | Inpatient (IN) | payer OTHER, MEDICARE ==
[~2019-06-25] VITALS: Ht 177.8 cm; Wt 137.1 kg
[2019-06-25] VITALS (56 sets, daily range): BP systolic 60–140; BP diastolic 40–67; O2SAT 95
[2019-06-25] MEDS ORDERED: ROCURONIUM BROMIDE 50 MG/5 ML VIAL IV ONE (00:30)
[2019-06-25] MEDS ORDERED: PROPOFOL 1,000 MG in IV 1 EA IV SCH (00:30)
[2019-06-25] MEDS ORDERED: ETOMIDATE INJ 20MG/10ML VIAL IV ONE (00:30)
[2019-06-25] MEDS ORDERED: PROPOFOL 1,000 MG/100 ML VIAL As Ordered ONE ×3 (00:31→23:16)
[2019-06-25] MEDS ORDERED: ISOVUE-370 76% 100ML VIAL (Q9967) As Ordered ONE (00:47)
[2019-06-25] MEDS ORDERED: NOREPINEPHRINE 4 MG/4 ML AMP As Ordered ONE (01:02)
[2019-06-25 01:05] LABS: BASO # 0.1 10^3/uL (0.0-0.2); BASO % 0.4 % (0.0-1.0); HEMATOCRIT 55.2 % (42.0-52.0); HEMOGLOBIN 16.4 g/dl (13.5-17.5); LYMPH # 1.9 10^3/uL (1.5-5.0); LYMPH % 8.4 % (24.0-44.0); MEAN CORPUSCULAR HEMOGLOBIN 27.9 pg (27.0-33.0); MEAN CORPUSCULAR HGB CONC 29.7 g/dl (32.0-36.5); MEAN CORPUSCULAR VOLUME 93.9 fl (80.0-96.0); MONO # 1.4 10^3/uL (0.0-0.8); MONO % 6.1 % (0.0-5.0); NEUTROPHILS # 18.8 10^3/uL (1.5-8.5); NEUTROPHILS % 83.6 % (36.0-66.0); RED BLOOD COUNT 5.88 10^6/uL (4.30-6.10); WHITE BLOOD COUNT 22.5 10^3/uL (4.0-10.0)
[2019-06-25 01:06] LABS: PLATELET COUNT, AUTOMATED 424 10^3/uL (150-450)
[2019-06-25 01:22] LABS: CK-MB VALUE MASS 6.6 NG/ML (<3.6); CPK CREATINE PHOSPHOKINASE 142 U/L (39-308); MB/CK RELATIVE INDEX 4.65 (< OR =4); TROPONIN I < 0.02 NG/ML (< 0.10)
[2019-06-25] MEDS ORDERED: NOREPINEPHRINE BITARTRATE 8 MG in D5W 492 ML IV SCH (01:30)
[2019-06-25 01:38] LABS: INR 1.28; PROTHROMBIN TIME 15.7 SECONDS (11.8-14.0)
[2019-06-25] MEDS ORDERED: RA S25CA PO (02:02)
[2019-06-25] MEDS ORDERED: POTA1TAB14 PO (02:02)
[2019-06-25] MEDS ORDERED: FAMO20TA PO (02:02)
[2019-06-25] MEDS ORDERED: FURO40TA2 PO (02:02)
[2019-06-25] MEDS ORDERED: PIPERACILLIN/TAZOBACTAM SOD 3.375 GM in D5W MINI-BAG PLUS 50 ML IV ONE (02:15)
[2019-06-25 02:22] LABS: BLOOD UREA NITROGEN 24 MG/DL (7-18); CALCIUM LEVEL 9.3 MG/DL (8.8-10.2); CARBON DIOXIDE LEVEL 31 MEQ/L (21-32); CHLORIDE LEVEL 89 MEQ/L (98-107); CREATININE FOR GFR 1.39 MG/DL (0.70-1.30); GLOMERULAR FILTRATION RATE 53.6 (>42); GLUCOSE, FASTING 191 MG/DL (70-100); POTASSIUM SERUM 4.8 MEQ/L (3.5-5.1); SODIUM LEVEL 136 MEQ/L (136-145)
[2019-06-25] MEDS ORDERED: METAL LOCK LOOP XX ONE (02:31)
--- NOTE | 2019-06-25 02:38 | REPVR ---
PROCEDURE INFORMATION: Exam: CT Head Without Contrast Exam date and time: 06/25/2019 12:30 AM Age: 69 years old Clinical indication: Coma or unconsciousness and other: Cardiac arrest; Additional info: CVA - nursing interventions must not delay CT TECHNIQUE: Imaging protocol: Computed tomography of the head without contrast. Radiation optimization: All CT scans at this facility use at least one of these dose optimization techniques: automated exposure control; mA and/or kV adjustment per patient size (includes targeted exams where dose is matched to clinical indication); or iterative reconstruction. COMPARISON: CT Head without contrast 2019-05-03 09:18 FINDINGS: Brain: Diffuse mild cerebral age related volume loss. Mild patchy low attenuation in the white matter compatible with mild chronic small vessel ischemic disease. No midline shift, mass, fluid collection, or evidence of hemorrhage. Ventricles: Ventricular enlargement proportional to volume loss. Bones/joints: Unremarkable. No acute fracture. Sinuses: Mild scattered paranasal sinus mucosal thickening and secretions. Mastoid air cells: Visualized mastoid air cells are well aerated. Soft tissues: Unremarkable. IMPRESSION: Mild involutional changes, no acute intracranial abnormality. Electronically signed by: Hugo Hurtado On 06/25/2019 02:38:15 AM
--- NOTE | 2019-06-25 02:43 | REPVR ---
PROCEDURE INFORMATION: Exam: CT Angiography Chest With Contrast Exam date and time: 06/25/2019 12:32 AM Age: 69 years old Clinical indication: Other: Cardiac arrest; Additional info: Cardiac arrest, unresponsive TECHNIQUE: Imaging protocol: Computed tomographic angiography of the chest with intravenous contrast. 3D rendering: MIP and/or 3D reconstructed images were created by the technologist. Radiation optimization: All CT scans at this facility use at least one of these dose optimization techniques: automated exposure control; mA and/or kV adjustment per patient size (includes targeted exams where dose is matched to clinical indication); or iterative reconstruction. Contrast material: ISO; Contrast volume: 100 ml; Contrast route: AC; COMPARISON: CT ANGIO CHEST 2018-07-31 06:27 FINDINGS: Tubes, catheters and devices: Left IJ central venous catheter tip is at the confluence. Endotracheal tube tip in mid trachea. Pulmonary arteries: The pulmonary arteries demonstrate moderate central enlargement, consistent with moderate pulmonary hypertension. No filling defects in the pulmonary arteries to suggest pulmonary emboli. Aorta: Unremarkable. No aortic aneurysm. No aortic dissection. Lungs: Bilateral dependent lower lobe atelectasis. Pleural space: Unremarkable. No pneumothorax. No pleural effusion. Heart: Moderate cardiac enlargement. Moderate cardiac enlargement. Mild coronary artery calcifications. Gallbladder and bile ducts: Cholelithiasis. Lymph nodes: Unremarkable. No enlarged lymph nodes. Bones/joints: Mild dextroconvex thoracic curvature. Soft tissues: Unremarkable. Other findings: Elevated diaphragm. IMPRESSION: 1. The pulmonary arteries demonstrate moderate central enlargement, consistent with moderate pulmonary hypertension. 2. Cholelithiasis. 3. No filling defects in the pulmonary arteries to suggest pulmonary emboli. Electronically signed by: Hugo Hurtado On 06/25/2019 02:43:27 AM
[2019-06-25] MEDS: PROPOFOL 1,000 MG in IV 1 EA IV SCH ×6 (02:44→23:18)
[2019-06-25] MEDS: NOREPINEPHRINE BITARTRATE 8 MG in D5W 492 ML IV SCH ×3 (02:44→21:03)
[2019-06-25] MEDS ORDERED: ALBUTEROL SULFATE 2.5 MG/0.5 ML INH NEB SOLN NEB PRN (02:45)
--- NOTE | 2019-06-25 02:47 | REPVR ---
PROCEDURE INFORMATION: Exam: CT Abdomen And Pelvis With Contrast Exam date and time: 06/25/2019 12:32 AM Age: 69 years old Clinical indication: Other: Cardiac arrest; Additional info: Cardiac arrest, unresponsive TECHNIQUE: Imaging protocol: Computed tomography of the abdomen and pelvis with intravenous contrast. Radiation optimization: All CT scans at this facility use at least one of these dose optimization techniques: automated exposure control; mA and/or kV adjustment per patient size (includes targeted exams where dose is matched to clinical indication); or iterative reconstruction. Contrast material: ISO; Contrast volume: 100 ml; Contrast route: AC; COMPARISON: No relevant prior studies available. FINDINGS: Lungs: Dependent subsegmental pulmonary atelectasis. Liver: Normal. No mass. Gallbladder and bile ducts: Cholelithiasis. Indistinct gallbladder wall with potentially volume averaging or gallbladder wall thickening, correlate with right upper quadrant ultrasound and clinical exam for potential cholecystitis. Pancreas: Normal. No ductal dilation. Spleen: Normal. No splenomegaly. Adrenals: Normal. No mass. Kidneys and ureters: Moderate left kidney atrophy. Stomach and bowel: Unremarkable. No obstruction. No mucosal thickening. Appendix: No evidence of appendicitis. Intraperitoneal space: Unremarkable. No free air. No significant fluid collection. Vasculature: Unremarkable. No abdominal aortic aneurysm. Lymph nodes: Unremarkable. No enlarged lymph nodes. Bladder: Unremarkable as visualized. Reproductive: Mild prostate calcifications and enlargement. Bones/joints: Moderate lumbar spondylosis. Soft tissues: Gynecomastia. Small bilateral fat protruding inguinal hernias. Small bilateral fat protruding inguinal hernias. IMPRESSION: Cholelithiasis. Indistinct gallbladder wall with potentially volume averaging or gallbladder wall thickening, correlate with right upper quadrant ultrasound and clinical exam for potential cholecystitis. Electronically signed by: Hugo Hurtado On 06/25/2019 02:47:04 AM
[2019-06-25] MEDS ORDERED: GLUCAGON FOR INJ 1 MG VIAL (J1610) SC PRN (03:00)
[2019-06-25] MEDS ORDERED: GLUCOSE 4 GM CHEW TABLET PO PRN (03:00)
[2019-06-25] MEDS ORDERED: DEXTROSE 50% 50 ML SYRINGE IV PRN (03:00)
[2019-06-25] MEDS: NS 1,000 ML IV SCH ×3 (04:00→23:18)
[2019-06-25 04:51] LABS: BASO # 0.1 10^3/uL (0.0-0.2); BASO % 0.2 % (0.0-1.0); HEMATOCRIT 52.2 % (42.0-52.0); HEMOGLOBIN 16.1 g/dl (13.5-17.5); LYMPH # 1.2 10^3/uL (1.5-5.0); LYMPH % 4.2 % (24.0-44.0); MEAN CORPUSCULAR HEMOGLOBIN 27.9 pg (27.0-33.0); MEAN CORPUSCULAR HGB CONC 30.8 g/dl (32.0-36.5); MEAN CORPUSCULAR VOLUME 90.3 fl (80.0-96.0); MONO # 1.7 10^3/uL (0.0-0.8); NEUTROPHILS % 88.7 % (36.0-66.0); PLATELET COUNT, AUTOMATED 387 10^3/uL (150-450); RED BLOOD COUNT 5.78 10^6/uL (4.30-6.10); WHITE BLOOD COUNT 28.7 10^3/uL (4.0-10.0)
[2019-06-25] MEDS: IPRATROPIUM 0.5MG/ALBUTEROL 2.5MG INH SOL UD 3ML (DUONEB)(J7620) NEB SCH ×6 (04:58→23:29)
[2019-06-25 05:07] LABS: HEMOGLOBIN A1c 5.3 %
[2019-06-25 05:16] LABS: ALBUMIN 3.1 GM/DL (3.2-5.2); ALT/SGPT 48 U/L (12-78); BILIRUBIN,TOTAL 1.6 MG/DL (0.2-1.0); BLOOD UREA NITROGEN 24 MG/DL (7-18); CALCIUM LEVEL 9.6 MG/DL (8.8-10.2); CARBON DIOXIDE LEVEL 39 MEQ/L (21-32); CHLORIDE LEVEL 87 MEQ/L (98-107); CHOLESTEROL LEVEL 77 MG/DL (< 200); CPK CREATINE PHOSPHOKINASE 185 U/L (39-308); CREATININE FOR GFR 1.12 MG/DL (0.70-1.30); GLOMERULAR FILTRATION RATE > 60.0 (>42); GLUCOSE, FASTING 141 MG/DL (70-100); LDH LACTATE DEHYDROGENASE 375 U/L (87-241); MAGNESIUM LEVEL 1.9 MG/DL (1.8-2.4); PHOSPHORUS LEVEL 4.1 MG/DL (2.5-4.9); POTASSIUM SERUM 4.2 MEQ/L (3.5-5.1); SODIUM LEVEL 136 MEQ/L (136-145); TOTAL PROTEIN 6.4 GM/DL (6.4-8.2); TRIGLYCERIDES LEVEL 92 MG/DL (<150)
[2019-06-25 05:25] LABS: NEUTROPHILS # 25.5 10^3/uL (1.5-8.5)
[2019-06-25] MEDS: HEPARIN SOD (PORCINE) 5000 UNITS/ML VIAL SC SCH ×3 (06:06→21:39)
[2019-06-25] MEDS: HumaLOG INSULIN (NovoLOG) PER UNIT SC SCH ×4 (06:11→23:25)
[2019-06-25] MEDS ORDERED: ROCURONIUM BROMIDE 50 MG/5 ML VIAL ONE (08:43)
[2019-06-25] MEDS ORDERED: ETOMIDATE INJ 20MG/10ML VIAL ONE (08:43)
[2019-06-25] MEDS: CHLORHEXIDINE GLUCONATE 0.12 % 15ML UDC (PERIDEX ORAL RINSE) MT SCH ×2 (09:08→21:38)
[2019-06-25] MEDS: PANTOPRAZOLE 40MG INJ (PROTONIX) (C9113) IV SCH (09:09)
[2019-06-25] MEDS: PIPERACILLIN/TAZOBACTAM SOD 3.375 GM in D5W MINI-BAG PLUS 50 ML IV SCH ×3 (09:09→21:38)
--- NOTE | 2019-06-25 09:26 | HPE ---
DATE OF ADMISSION: 06/25/2019 CHIEF COMPLAINT: Asked y Dr. Barnes to emergently evaluate Mr. Ulloa for decreased medical mental status leading to intubation mechanical ventilation. HISTORY OF PRESENT ILLNESS: Mr. Ulola is a 69-year-old male who had some neurologic get difficulties dating back to October of this year. Per his and son it is difficulties included swallowing speaking her slurring of speech and confusion. It has come to the point where his has to where his has to cut up his food in tiny pieces and has to work hard to swallow it. She believes he is aspirating and often times he ends up not being able to repel the foot back in his mouth and drools out over his shirt. He apparently has lost considerable weight since October. His feels that his symptoms intensified over the past 24-48 hours with more agitation and restlessness. He had worsened difficulties with swallowing and propelling food today and his son evaluated as well and thought it was from a crooked tooth and pulled that tooth with a wrench. They came to the emergency department earlier today because of bleeding and agitation. Apparently his bleeding was stopped and he was discharged. This evening he was moving from the couch back and forth to the recliner which he typically sleeps in (and has done so since May 2018). His thought that she could see him from her bedroom. Apparently he was walking towards the recliner from the cough when he suddenly fell over. I do not know how much time he was down before EMS was summoned. Apparently they got there within 5 minutes and he was pulseless and apneic. They did CPR for about 5 minutes and they got a pulse back in the ambulance. He had a blood pressure of 160. When he arrived at the ER he became unresponsive and required intubation to protect his airway. I am not aware of any other medications. When he arrived in the emergency room, he was minimally responsive and needed to be intubated. He was also hypotensive and has been on vasopressors. Part of the difficulty in evaluating his symptoms as study his refusal to do studies. He had been scheduled for an MRI during his April admission and he was sees that. He also was started to have a swallow evaluation and he refused to do the second part of it. His medical care headaches been both admissions here as well as at the [facility]. I do not know much involvement or how much of an evaluation. ALLERGIES: NO KNOWN DRUG ALLERGIES. MEDICATIONS ON ADMISSION: ProAir 2 puffs every 6 hours as needed, aspirin EC 81 mg by mouth daily, atenolol 50 mg by mouth daily, diphenhydramine 25 mg by mouth in the evening as needed, famotidine 20 mg by mouth twice a day, Lasix 40 mg by mouth daily, Ibuprofen 400 mg by mouth four times a day as needed, metformin 500 (prescribed as twice a day by physician recently told him to take it once a day), mg by mouth daily, Potassium 20 mg by mouth twice a day (prescribed as one per day but says he takes it twice a day), Rosuvastatin 20 mg by mouth daily. PAST MEDICAL HISTORY: (Obtained from chart and ). 1. Dyslipidemia. 2. Hypertension. 3. Diabetes mellitus (borderline per ). 4. Probable left ventricular diastolic dysfunction. 5. Obesity. SOCIAL HISTORY: Mr. Ulloa is a lifelong nonsmoker. He does not drink alcohol. No history of drugs. REVIEW OF SYSTEMS: Unobtainable from the patient secondary to intubation. What is known is contained within the HPI with the exception that he has chronic lower extremity edema that has been present since at least October if not longer as well as orthopnea. PHYSICAL EXAMINATION General: Mr. Ulloa is intubated and synchronous with the ventilator. He occasionally moves his right toes. I did not note any other spontaneous movement. Vital signs: Temperature 96.1, pulse 57, respiratory rate 14, blood pressure 117/58 with a MAP of 77, SPO2 94% on FIO2 0.4. HEENT: Anicteric, pupils 3 mm and reactive. Nares: Patent bilaterally. Oropharynx ET tube and OG tube in place: Very poor dentition with few teeth. NECK: Supple, without apparent JVD, thyromegaly, trachea is midline. Lymph: Without cervical or supraclavicular lymphadenopathy. Lungs: Symmetric excursion, fair air entry, no wheeze, rhonchi or crackle appreciated. Normal I to E rate. No accessory muscle use wheezes or retractions. Cardiovascular: Normal sinus rhythm with a normal S1-S2, no murmur, rub or gallop appreciated. Abdomen: Obese, soft, decreased bowel sounds, no hepatosplenomegaly or masses appreciated. Difficult exam his body habitus. Extremities: Cool with decreased perfusion, there is 2 to 3+ any edema to the knees bilaterally. Perhaps slightly greater on the right. There is some edema in the scrotum. Pedal pulses are palpable bilaterally. LABORATORY DATA: CBC showed a hemoglobin 16.4, hematocrit 55.2, platelet count 424,000, white blood cell count 22,500 with a differential of 84% neutrophils, 8% lymphocytes, 6% monocytes. Chemistries shows sodium 136, potassium 4.8, chloride 89, bicarbonate 31, anion gap 16, BUN 24, creatinine 1.4, glucose 191, lactic acid 3.80, calcium 9.3, CK 142, CK-MB 6.6, troponin-I less than 0.02. INR 1.28, PTT 36. Arterial blood gas was 7.36 / 79/302 with a measured saturation of 100%. I reviewed his chest x-ray and x-ray showed normal-appearing cardiac silhouette with air bronchograms and infiltrate, retrocardiac. Right lung with relatively clear. There is some rotation and I can not comment on the size of the pulmonary arteries. Endotracheal tube was at the level of the clavicles. I reviewed this chest CT pulmonary angiogram was well as report. That study showed normal-appearing cardiac silhouette and pulmonary vascular shadows. No mediastinal hilar lymphadenopathy. Cardiac silhouette enlarged pulmonary arteries. No mediastinal hilar lymphadenopathy. No PEs. There is a bilateral lower lobe atelectasis / infiltrate slightly greater on the left. I reviewed the report from his abdominal CT scan which showed cholelithiasis but otherwise is unremarkable. I reviewed the report of the head CT scan which showed mild involutional changes, no acute intracranial abnormality. IMPRESSION: 1. Decreased mental status leading to intubation and mechanical ventilation. 2. Cardiac arrest in the field resuscitation consistent with CARDIOPULMONARY RESUSCITATION. 3. Chronic hypercapnia unknown etiology. If he is a lifelong nonsmoker. Has no evidence emphysema and a CT scan making COPD less likely. I am very suspicious of sleep apnea and that may be part of his difficulty. Obesity hypoventilation was also be the differential. Decreased mental status per his family he has symptoms for quite some time. They were predominately bulbar in nature. While CVA would be in the differential for what happened this evening I would have expected to see some changes recurrent difficulties. I am more suspicious of an underlying neurologic disease process. 4. Polycythemia, likely secondary. Again I am suspicious of obstructive sleep apnea and chronic hypoxemia. 5. Diabetes mellitus, borderline. 6. Obesity. 7. Diastolic dysfunction. 8. Hopefully given his chest x-ray changes and his risk for aspiration in addition to his elevated WBC count and lactate, certainly the WBC and lactate could be elevated from the cardiac arrest tonight. 9. DVT prophylaxis with subcutaneous heparin. 10. Stress ulcer prophylaxis with proton pump inhibitor. RECOMMENDATIONS: 1. We will likely obtain an MRI tomorrow to better evaluate for any pathology. 2. Will check hemoglobin A1c to see how controlled his sugars are. 3. Obtain a neurology consult. 4. Continue supportive care. As noted above. I am concerned about chronic issue suggest pulmonary hypertension, such as his polycythemia, pulmonary hypertension, possible obesity hypoventilation and possible obstructive sleep apnea, those issues will need to be evaluated as an outpatient. 5. Both Dr. Barnes and myself spoke independently to his and son updating the above, though I did not specifically go in about pulmonary hypertension and polycythemia. Critical care time, I would say 70 minutes not including procedure time.
--- NOTE | 2019-06-25 10:17 | REP ---
REASON: Stoke-like symptoms. COMPARISON: Multiple, the latest 05/03/2019 There is an endotracheal tube in place, the tip is in satisfactory position at the level of the clavicular heads. There is cardiomegaly status quo accentuated by technique. Patchy opacities are seen in the left retrocardiac region representing a change from the prior exam. The right lung field is clear. The lung goodson are hypoexpanded. There is no change in the osseous structures. IMPRESSION:1. Endotracheal tube in satisfactory position as described above. 2. Left retrocardiac opacities. Etiology uncertain and see in a limited fashion on this portable exam. Left lower lobe pneumonia and or subsegmental atelectasis can not be ruled out. 3. Other findings as described above. Electronically Signed by Henri Dunbar DO 06/25/2019 10:23 A
[2019-06-25 11:36] LABS: HEMATOCRIT 44.2 % (42.0-52.0); MEAN CORPUSCULAR HEMOGLOBIN 27.7 pg (27.0-33.0); MEAN CORPUSCULAR HGB CONC 31.2 g/dl (32.0-36.5); MEAN CORPUSCULAR VOLUME 88.8 fl (80.0-96.0); PLATELET COUNT, AUTOMATED 318 10^3/uL (150-450); RED BLOOD COUNT 4.98 10^6/uL (4.30-6.10); WHITE BLOOD COUNT 20.9 10^3/uL (4.0-10.0)
[2019-06-25 11:39] LABS: HEMOGLOBIN 13.8 g/dl (13.5-17.5)
--- NOTE | 2019-06-25 12:07 | ECGEPIP ---
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
[2019-06-25] MEDS: ACETAMINOPHEN 325 MG/10.15 ML UDC GT PRN ×2 (12:49→19:29)
[2019-06-25] MEDS: MORPHINE 2 MG/ML 1ML VIAL (J2270) IV PRN (12:50)
[2019-06-25 13:12] LABS: ABG BASE EXCESS 12.4 (-2.0-2.0); ABG HCO3 37.4 MEQ/L (22.0-26.0); ABG PARTIAL PRESSURE CO2 48.4 mmHg (35.0-45.0); ABG PARTIAL PRESSURE O2 75.6 mmHg (75.0-100.0); ABG STANDARD HCO3 36.2 MEQ/L (22.0-26.0); ABG TOTAL CO2 38.9 MEQ/L (23.0-31.0); ABG pH (ARTERIAL) 7.506 UNITS (7.350-7.450)
[2019-06-25] MEDS: MIDAZOLAM INJ 2 MG/2 ML VIAL (J2250) IV PRN ×3 (16:15→19:19)
[2019-06-25] MEDS ORDERED: MIDAZOLAM INJ 2 MG/2 ML VIAL (J2250) IV ONE (16:45)
--- NOTE | 2019-06-25 17:13 | CCN ---
DATE: 06/25/2019 No significant change in Mr. Ulloa since admission. He does now have a temperature of 100.8. He remains on Levophed at 15 mcg. His current blood pressure is 105/56. No change in examination. It was difficult to determine reflexes again secondary to body habitus. A repeat chest x-ray was done to ensure good tube position before transport to MRI. Even though it was a difficult x-ray, as his head was down, it does appear that the endotracheal tube is in good position. No consolidated regions. In reviewing his chart, it appears that he has lost another 7 kg over the 2-month period. Family reports that his weight has decreased from 143 kg to his present 118.4 kg since October. This is about a 55-pound loss, and that has been secondary to inability to take by mouth. Additional information that has been learned since his admission is that his arterial blood gas is consistent with CO2 retention that was not known before. Also, his hemoglobin A1c was acceptable at 5.3. I spoke with Dr. Murillo regarding this information. His initial differential included amyotrophic lateral sclerosis (ALS), myasthenia gravis, and cerebrovascular events. He was already scheduled for an MRI and MRA of the brain, and he suggested that we add cervical spine and thoracic spine, particularly if he was hyperreflexic. Again, it is difficult to tell his reflexes because of his body habitus, but they did not appear to be strikingly positive. In addition, we will order the acetylcholine receptor antibodies, he will see him later today. At the present time, he is not weanable in part because he on vasopressors, but also in part we do not know the reason that he ended up with decreased mental status with a possible cardiac arrest requiring mechanical ventilation. Additional critical care time: 20 minutes, not including procedure time.
[2019-06-25] MEDS ORDERED: PROHANCE 279.3MG/ML 15ML VIAL (A9576) As Ordered ONE (17:48)
[2019-06-25] MEDS ORDERED: PROHANCE 279.3MG/ML 5ML VIAL (A9576) As Ordered ONE (17:48)
--- NOTE | 2019-06-25 19:37 | REPVR ---
PROCEDURE INFORMATION: Exam: MR Head Without and With Contrast Exam date and time: 06/25/2019 1:34 PM Age: 69 years old Clinical indication: Altered mental status/memory loss; Confusion or disorientation; Patient HX: PT vented; Additional info: Decline in mentation, indeterminate reflexes TECHNIQUE: Imaging protocol: MR of the head without and with intravenous contrast. Contrast material: PROHANCE; Contrast volume: 20 ml; Contrast route: IV; COMPARISON: CT Head without contrast 06/25/2019 1:25 AM FINDINGS: Brain: Normal. No acute infarct. No hemorrhage. No significant white matter disease. No edema. Ventricles: Normal. No ventriculomegaly. Bones/joints: Unremarkable. Soft tissues: Unremarkable. Sinuses: Inflammatory changes in the ethmoid sinuses. Mastoid air cells: Normal as visualized. No mastoid effusion. Orbits: Unremarkable. Nasopharynx: Retained secretions in the posterior nasopharynx. IMPRESSION: No acute findings. Electronically signed by: Melquiades Tafoya On 06/25/2019 19:37:28 PM
--- NOTE | 2019-06-25 19:40 | REPVR ---
PROCEDURE INFORMATION: Exam: MR Angiogram Head Without Contrast, Arteries Exam date and time: 06/25/2019 9:24 AM Age: 69 years old Clinical indication: Cognitive deficit; Other symptoms involving cognitive function; Patient HX: PT vented; Additional info: Decreased mental status TECHNIQUE: Imaging protocol: MR angiogram head without contrast. Exam focused on the arteries. COMPARISON: CT Head without contrast 06/25/2019 1:25 AM FINDINGS: Right internal carotid artery: Mild luminal irregularity petrosal segment right internal carotid artery consistent with mild atherosclerosis. No significant stenosis. Right anterior cerebral artery: Unremarkable. No occlusion or significant stenosis. No aneurysm. Right middle cerebral artery: Unremarkable. No occlusion or significant stenosis. No aneurysm. Right posterior cerebral artery: Unremarkable. No occlusion or significant stenosis. No aneurysm. Right vertebral artery: Unremarkable. No occlusion or significant stenosis. No aneurysm. Left internal carotid artery: Mild luminal irregularity left petrosal segment internal carotid artery consistent with mild atherosclerosis. No significant stenosis. Left anterior cerebral artery: Unremarkable. No occlusion or significant stenosis. No aneurysm. Left middle cerebral artery: Unremarkable. No occlusion or significant stenosis. No aneurysm. Left posterior cerebral artery: Persistent origin left posterior cerebral artery. Left vertebral artery: Unremarkable. No occlusion or significant stenosis. No aneurysm. Basilar artery: Unremarkable. No occlusion or significant stenosis. No aneurysm. IMPRESSION: No acute findings. Electronically signed by: Melquiades Tafoya On 06/25/2019 19:40:33 PM
[2019-06-26] VITALS (64 sets, daily range): BP systolic 75–123; BP diastolic 42–64; O2SAT 96
[2019-06-26] MEDS: PIPERACILLIN/TAZOBACTAM SOD 3.375 GM in D5W MINI-BAG PLUS 50 ML IV SCH ×4 (03:55→22:07)
[2019-06-26] MEDS ORDERED: PROPOFOL 1,000 MG/100 ML VIAL As Ordered ONE ×4 (03:56→15:24)
[2019-06-26] MEDS: PROPOFOL 1,000 MG in IV 1 EA IV SCH ×4 (03:57→22:07)
[2019-06-26] MEDS: IPRATROPIUM 0.5MG/ALBUTEROL 2.5MG INH SOL UD 3ML (DUONEB)(J7620) NEB SCH ×5 (04:07→20:21)
[2019-06-26] MEDS: NYSTATIN 100,000 UNITS/GM TOPICAL PWD 15 GM TOP PRN ×2 (04:27→08:54)
[2019-06-26] MEDS: ACETAMINOPHEN 325 MG/10.15 ML UDC GT PRN ×2 (04:27→16:32)
[2019-06-26 05:47] LABS: BASO % 0.2 % (0.0-1.0); HEMATOCRIT 42.2 % (42.0-52.0); HEMOGLOBIN 13.3 g/dl (13.5-17.5); LYMPH % 11.1 % (24.0-44.0); MEAN CORPUSCULAR HEMOGLOBIN 27.9 pg (27.0-33.0); MEAN CORPUSCULAR HGB CONC 31.5 g/dl (32.0-36.5); MEAN CORPUSCULAR VOLUME 88.7 fl (80.0-96.0); MONO # 1.3 10^3/uL (0.0-0.8); MONO % 7.3 % (0.0-5.0); NEUTROPHILS # 14.3 10^3/uL (1.5-8.5); NEUTROPHILS % 80.8 % (36.0-66.0); PLATELET COUNT, AUTOMATED 226 10^3/uL (150-450); RED BLOOD COUNT 4.76 10^6/uL (4.30-6.10); WHITE BLOOD COUNT 17.7 10^3/uL (4.0-10.0)
[2019-06-26 06:14] LABS: ALBUMIN 2.1 GM/DL (3.2-5.2); ALT/SGPT 27 U/L (12-78); BILIRUBIN,TOTAL 1.2 MG/DL (0.2-1.0); BLOOD UREA NITROGEN 16 MG/DL (7-18); CALCIUM LEVEL 8.2 MG/DL (8.8-10.2); CARBON DIOXIDE LEVEL 36 MEQ/L (21-32); CHLORIDE LEVEL 89 MEQ/L (98-107); CHOLESTEROL LEVEL 59 MG/DL (< 200); CPK CREATINE PHOSPHOKINASE 141 U/L (39-308); CREATININE FOR GFR 1.08 MG/DL (0.70-1.30); GLOMERULAR FILTRATION RATE > 60.0 (>42); GLUCOSE, FASTING 169 MG/DL (70-100); LDH LACTATE DEHYDROGENASE 280 U/L (87-241); MAGNESIUM LEVEL 1.6 MG/DL (1.8-2.4); PHOSPHORUS LEVEL 2.4 MG/DL (2.5-4.9); POTASSIUM SERUM 3.4 MEQ/L (3.5-5.1); SODIUM LEVEL 135 MEQ/L (136-145); TOTAL PROTEIN 4.8 GM/DL (6.4-8.2); TRIGLYCERIDES LEVEL 90 MG/DL (<150)
[2019-06-26] MEDS: HEPARIN SOD (PORCINE) 5000 UNITS/ML VIAL SC SCH ×3 (06:28→20:59)
[2019-06-26] MEDS: HumaLOG INSULIN (NovoLOG) PER UNIT SC SCH ×4 (06:29→23:35)
[2019-06-26] MEDS: NOREPINEPHRINE BITARTRATE 8 MG in D5W 492 ML IV SCH (06:29)
--- NOTE | 2019-06-26 07:32 | REP ---
REASON: Status-post intubation. COMPARISON: Earlier today. The endotracheal tube tip remains in satisfactory position at the level of the clavicular heads. Since the last examination, left sided internal jugular central venous catheter has been placed. The tip is in the left brachiocephalic vein. Since our last examination a nasogastric tube has been placed. The proximal port is at the level of the gastroesophageal junction. Increased left sided retrocardiac opacities appear to have developed with complete silhouetting out of the diaphragmatic surface of the left lung. The right lung is unchanged. The osseous structures are unchanged. IMPRESSION:1. Tubes and lines as described above. 2. Increased opacity left lower lobe. Electronically Signed by Henri Dunbar DO 06/26/2019 08:56 A
[2019-06-26] MEDS: PANTOPRAZOLE 40MG INJ (PROTONIX) (C9113) IV SCH (08:53)
[2019-06-26] MEDS: CHLORHEXIDINE GLUCONATE 0.12 % 15ML UDC (PERIDEX ORAL RINSE) MT SCH ×2 (08:53→20:58)
[2019-06-26] MEDS: MIDAZOLAM INJ 2 MG/2 ML VIAL (J2250) IV PRN ×2 (10:26→13:24)
--- NOTE | 2019-06-26 12:40 | REPVR ---
PROCEDURE INFORMATION: Exam: MR Cervical Spine Without Contrast Exam date and time: 06/26/2019 12:11 PM Age: 69 years old Clinical indication: Weakness; Patient HX: PT vented; Additional info: Decreased mental status w/ indeterminate reflexes TECHNIQUE: Imaging protocol: Multiplanar magnetic resonance images of the cervical spine without contrast. COMPARISON: XA Cookie Swallow Mod.Ba Swallow 05/04/2019 2:06 PM FINDINGS: Vertebrae: There is moderate prevertebral edema. This is nonspecific, especially considering patient is intubated. Spinal cord: Normal signal. No cord compression. There are advanced multilevel degenerative changes that include disc space narrowing, disc desiccation, uncovertebral joint arthropathy, and hypertrophic spur formation. There is no significant spinal canal stenosis. Vertebral arteries: Expected flow voids in the vertebral arteries. Soft tissues: Unremarkable. IMPRESSION: 1. There are advanced multilevel degenerative changes that include disc space narrowing, disc desiccation, uncovertebral joint arthropathy, and hypertrophic spur formation. There is no significant spinal canal stenosis. 2. There is moderate prevertebral edema. This is nonspecific, especially considering patient is intubated. Underlying infection cannot be excluded. Please correlate clinically. Electronically signed by: Rowdy Chong On 06/26/2019 12:40:14 PM
--- NOTE | 2019-06-26 12:58 | REPVR ---
PROCEDURE INFORMATION: Exam: MR Thoracic Spine Without Contrast Exam date and time: 06/26/2019 12:11 PM Age: 69 years old Clinical indication: Weakness; Patient HX: PT vented; Additional info: Decreased mental status w/ indeterminate reflexes TECHNIQUE: Imaging protocol: Multiplanar magnetic resonance images of the thoracic spine without intravenous contrast. COMPARISON: No relevant prior studies available. FINDINGS: Vertebrae: There is a fracture coursing through the inferior endplate of the T8 vertebra. This does not have the appearance of a compression fracture. If this is unknown to the treating physician, a dedicated CT scan of the thoracic spine would be recommended to exclude extension of the fracture to the posterior elements and soft tissues. Spinal cord: Normal signal. No cord compression. There is high signal abnormality within the T9/10 and T9/11 intervertebral discs. The adjacent endplates are intact. Findings are nonspecific but may be seen in the setting of early discitis. There are degenerative changes throughout the thoracic spine including disc space narrowing, disc desiccation, and disc bulging. Pleural space: There are bilateral pleural effusions. Soft tissues: See Vertebrae Finding. IMPRESSION: 1. There is a fracture coursing through the inferior endplate of the T8 vertebra. This does not have the appearance of a compression fracture. If this is unknown to the treating physician, a dedicated CT scan of the thoracic spine would be recommended to exclude extension of the fracture to the posterior elements and soft tissues. 2. There are degenerative changes throughout the thoracic spine including disc space narrowing, disc desiccation, and disc bulging. 3. There is high signal abnormality within the T9/10 and T9/11 intervertebral discs. The adjacent endplates are intact. Findings are nonspecific but may be seen in the setting of early discitis. 4. There are bilateral pleural effusions. Electronically signed by: Rowdy Chong On 06/26/2019 12:57:54 PM
--- NOTE | 2019-06-26 14:40 | REP ---
REASON: Followup. COMPARISON: Multiple, the latest yesterday at 11:57:31 am. The tubes and line are unchanged. The opacity in the left lower lung field silhouetting out the diaphragmatic surface of the left lung is unchanged. There are no new abnormal opacities. There is no change in the osseous structures. The technique utilized in obtaining the radiograph has magnified the cardiac silhouette and accentuated the interstitial markings. IMPRESSION: No change. Electronically Signed by Henri Dunbar DO 06/26/2019 03:26 P
[2019-06-26] MEDS: MORPHINE 2 MG/ML 1ML VIAL (J2270) IV PRN ×2 (16:33→21:01)
[2019-06-26] MEDS: NS 1,000 ML IV SCH (18:37)
[2019-06-26] MEDS ORDERED: KCL 20MEQ IN 100ML SWI (KRUN) 20 MEQ in IV 1 EA IV ONE ×2 (19:15)
[2019-06-26] MEDS ORDERED: MAG SULF 1GM/100ML (MAG RUN) 1 GM in IV 1 EA IV ONE (20:15)
--- NOTE | 2019-06-26 22:12 | CR ---
DATE OF CONSULTATION: 06/25/2019 REFERRING PROVIDER: Monica Thompson MD REASON FOR CONSULTATION: Dysphasia, dysarthria progressive since October 2018 rule out neurological cause HISTORY OF PRESENT ILLNESS: The patient is a 69-year-old male who has been presenting with chief complaint of symptoms of difficulty swallowing and slurred speech, ongoing since October of this year. He has had also episodes of confusion. The patient ended up having episodes of aspiration. Over the last 24-48 hours, he has become more agitated and restless. The patient had difficulty with a crooked tooth. His son used a wrenched and pulled the tooth out himself. There was significant bleeding and agitation after the tooth extraction. The patient was seen in the emergency department for this. The bleeding had stopped and he was discharged. He was propped up in his recliner where he usually sleeps. He was walking towards the recliner and suddenly collapsed. Emergency Medical Service (EMS) was called. When they arrived, the patient was noted be pulseless and apneic. CPR was performed for 5 minutes without any medications given. He had return of normal spontaneous rhythm. His blood pressure systolic was 160, when he arrived to the emergency department he was unresponsive, hypotensive, apneic and required intubation to predict his airway. The patient was placed on Levophed to address his hypotension. He is on propofol, he is intubated. The patient has been asked to be seen by neurology for further evaluation of his progressive dysarthria, dysphagia. The patient currently being worked up for motor neuron disease, bulbar onset amyotrophic lateral sclerosis (ALS) versus neuromuscular junction disorder, such as myasthenia gravis. At the present time, he is intubated and sedated. Upon examination, which is limited due to the patient being intubated and unable to follow commands due to confusion, it is noted that he has fine fasciculations of the tongue and very minimal fasciculations noted in the distal hands at the FDIs with atrophy in the hand intrinsic muscle distribution. The patient is scheduled for MRI of the brain with and without contrast. MRI of the cervical and thoracic spine to rule out any central causes. He may need EMG nerve conduction studies once stable set up through outpatient workup to further help diagnosing him. In the past admissions, the patient has refused any sort of imaging. Due to his unresponsiveness agitation, confusion and dysarthria, dysphagia, MRI was ordered. It did not reveal any acute stroke or mass lesion. REVIEW OF SYSTEMS: Unobtainable as the patient is altered in cognition. PAST MEDICAL HISTORY: 1. Dyslipidemia. 2. Hypertension. 3. Type 2 diabetes. 4. Borderline left ventricular diastolic dysfunction. 5. Obesity. SOCIAL HISTORY: The patient does not use any tobacco, alcohol or illicit drugs. FAMILY HISTORY: Noncontributory. PHYSICAL EXAMINATION: Blood pressure is 105/56, pulse rate 76, respiratory rate is 14, temperature is 100.8 degrees Fahrenheit, oxygenation 97% on ventilator, FiO2 of 45%. CURRENT MEDICATIONS: Zosyn 3.375 grams, heparin 5000 subcutaneous 8 hours, propofol, as needed Versed. Lactic acid is 4.5, WBC count is 20.9, current height is 70 inches. Current weight is 118 kg. The patient is able to wake up to tactile stimulation to the body. The Versed and propofol seem to be wearing off. The patient is noted to move all four extremities purposefully. He is trying to take his mitts off. Pupils are round and reactive to light. Tongue appears to show fine fasciculations, hand intrinsic muscle atrophy is noted. Very few and rare fasciculations are noted in the FDI, left greater than right. Deep tendon reflexes appears to be 2+ throughout with reduced Achilles reflexes. Babinski signs appear to be absent. The patient withdraws with noxious stimuli to the distal feet. Sensory is intact to light touch in all four extremities. The patient withdraws to tactile stimulation. The patient is reported a strong gag reflex. Corneal responses are present. ASSESSMENT: 1. Progressive dysarthria, dysphasia with acute restlessness, agitation. The patient is acutely confused with probable aspiration pneumonia with chronic hypercapnia. 2. Differentials for his dysarthria, dysphagia include bulbar onset amyotrophic lateral sclerosis (ALS) or neuromuscular junction disorder. PLAN: 1. Obtain MRI brain, Magnetic Resonance Imaging (MRI) cervical, MRI thoracic spine without contrast. 2. Check acetylcholine receptor antibodies, anti-striational antibodies, intramuscular bodies. 3. Continue supportive care. 4. Recommend Outpatient EMG nerve conduction study to better evaluate for motor neuron disease 5. History was obtained from the chart and the referring provider; family not available at bedside to provide any further history. Continue supportive care.
[2019-06-27] VITALS (82 sets, daily range): BP systolic 69–156; BP diastolic 49–101
[2019-06-27] MEDS: NOREPINEPHRINE BITARTRATE 8 MG in D5W 492 ML IV SCH ×3 (00:14→14:07)
[2019-06-27] MEDS: IPRATROPIUM 0.5MG/ALBUTEROL 2.5MG INH SOL UD 3ML (DUONEB)(J7620) NEB SCH ×7 (01:28→23:52)
[2019-06-27] MEDS: PIPERACILLIN/TAZOBACTAM SOD 3.375 GM in D5W MINI-BAG PLUS 50 ML IV SCH (04:14)
[2019-06-27] MEDS: PROPOFOL 1,000 MG in IV 1 EA IV SCH ×5 (04:15→23:57)
[2019-06-27] MEDS: NYSTATIN 100,000 UNITS/GM TOPICAL PWD 15 GM TOP PRN ×2 (04:51→12:23)
[2019-06-27 05:26] LABS: BASO % 0.2 % (0.0-1.0); EOS % 0.3 % (0.0-3.0); HEMATOCRIT 40.8 % (42.0-52.0); HEMOGLOBIN 12.5 g/dl (13.5-17.5); LYMPH # 1.9 10^3/uL (1.5-5.0); LYMPH % 14.5 % (24.0-44.0); MEAN CORPUSCULAR HEMOGLOBIN 27.9 pg (27.0-33.0); MEAN CORPUSCULAR HGB CONC 30.6 g/dl (32.0-36.5); MEAN CORPUSCULAR VOLUME 91.1 fl (80.0-96.0); MONO % 7.6 % (0.0-5.0); NEUTROPHILS # 9.9 10^3/uL (1.5-8.5); NEUTROPHILS % 76.7 % (36.0-66.0); PLATELET COUNT, AUTOMATED 193 10^3/uL (150-450); RED BLOOD COUNT 4.48 10^6/uL (4.30-6.10); WHITE BLOOD COUNT 12.9 10^3/uL (4.0-10.0)
[2019-06-27 05:50] LABS: ALBUMIN 1.9 GM/DL (3.2-5.2); ALT/SGPT 28 U/L (12-78); BILIRUBIN,TOTAL 0.9 MG/DL (0.2-1.0); BLOOD UREA NITROGEN 15 MG/DL (7-18); CALCIUM LEVEL 8.2 MG/DL (8.8-10.2); CARBON DIOXIDE LEVEL 38 MEQ/L (21-32); CHLORIDE LEVEL 94 MEQ/L (98-107); CHOLESTEROL LEVEL 66 MG/DL (< 200); CPK CREATINE PHOSPHOKINASE 64 U/L (39-308); CREATININE FOR GFR 0.91 MG/DL (0.70-1.30); GLOMERULAR FILTRATION RATE > 60.0 (>42); GLUCOSE, FASTING 119 MG/DL (70-100); LDH LACTATE DEHYDROGENASE 157 U/L (87-241); MAGNESIUM LEVEL 2.1 MG/DL (1.8-2.4); PHOSPHORUS LEVEL 2.9 MG/DL (2.5-4.9); POTASSIUM SERUM 3.5 MEQ/L (3.5-5.1); SODIUM LEVEL 139 MEQ/L (136-145); TOTAL PROTEIN 4.9 GM/DL (6.4-8.2); TRIGLYCERIDES LEVEL 127 MG/DL (<150)
[2019-06-27] MEDS: HEPARIN SOD (PORCINE) 5000 UNITS/ML VIAL SC SCH ×3 (06:17→21:23)
[2019-06-27] MEDS: HumaLOG INSULIN (NovoLOG) PER UNIT SC SCH ×3 (06:17→17:57)
[2019-06-27] MEDS: MIDAZOLAM INJ 2 MG/2 ML VIAL (J2250) IV PRN ×6 (07:30→17:56)
[2019-06-27] MEDS: NS 1,000 ML IV SCH ×3 (08:04→21:48)
--- NOTE | 2019-06-27 08:42 | REP ---
Clinical: Status post intubation. Comparison: 06/26/2019. Findings: Endotracheal tube in satisfactory position 4 cm above the wilber. Nasogastric tube courses below left hemidiaphragm in stable position. Left sided central venous catheter in stable position. Increasing opacification in the left mid to lower lung zone suggesting elements of atelectasis/infiltrate and effusion. Subtle right basilar atelectasis cannot be excluded. No pneumothorax. Skeletal structures are intact. Impression: 1. Suspected increased opacity in the left mid/lower lung zone. Electronically Signed by Ashwin Hoffmann MD 06/27/2019 08:33 A
[2019-06-27] MEDS: PANTOPRAZOLE 40MG INJ (PROTONIX) (C9113) IV SCH (09:25)
[2019-06-27] MEDS: CHLORHEXIDINE GLUCONATE 0.12 % 15ML UDC (PERIDEX ORAL RINSE) MT SCH ×2 (09:25→21:23)
[2019-06-27] MEDS ORDERED: LIDOCAINE 1% MDV 20ML VIAL As Ordered ONE (10:14)
[2019-06-27] MEDS: NAFCILLIN SOD 1 GM in D5W MINI-BAG PLUS 50 ML IV SCH ×2 (12:22→17:57)
[2019-06-27] MEDS: MORPHINE 2 MG/ML 1ML VIAL (J2270) IV PRN (16:50)
[2019-06-28] VITALS (49 sets, daily range): BP systolic 80–157; BP diastolic 43–83
[2019-06-28] MEDS: NAFCILLIN SOD 1 GM in D5W MINI-BAG PLUS 50 ML IV SCH ×4 (00:48→17:25)
[2019-06-28] MEDS: HumaLOG INSULIN (NovoLOG) PER UNIT SC SCH ×4 (00:48→17:49)
[2019-06-28] MEDS: MIDAZOLAM INJ 2 MG/2 ML VIAL (J2250) IV PRN ×3 (01:33→17:00)
[2019-06-28] MEDS: MORPHINE 2 MG/ML 1ML VIAL (J2270) IV PRN ×2 (02:55→12:11)
[2019-06-28] MEDS: PROPOFOL 1,000 MG in IV 1 EA IV SCH ×5 (03:31→20:55)
[2019-06-28] MEDS: IPRATROPIUM 0.5MG/ALBUTEROL 2.5MG INH SOL UD 3ML (DUONEB)(J7620) NEB SCH ×5 (04:00→20:11)
[2019-06-28] MEDS: NOREPINEPHRINE BITARTRATE 8 MG in D5W 492 ML IV SCH (05:08)
[2019-06-28 06:05] LABS: BASO % 0.2 % (0.0-1.0); EOS # 0.1 10^3/uL (0.0-0.5); EOS % 1.2 % (0.0-3.0); HEMATOCRIT 38.4 % (42.0-52.0); HEMOGLOBIN 11.4 g/dl (13.5-17.5); LYMPH # 1.3 10^3/uL (1.5-5.0); LYMPH % 13.3 % (24.0-44.0); MEAN CORPUSCULAR HEMOGLOBIN 27.9 pg (27.0-33.0); MEAN CORPUSCULAR HGB CONC 29.7 g/dl (32.0-36.5); MEAN CORPUSCULAR VOLUME 93.9 fl (80.0-96.0); MONO # 0.8 10^3/uL (0.0-0.8); MONO % 7.8 % (0.0-5.0); NEUTROPHILS # 7.6 10^3/uL (1.5-8.5); NEUTROPHILS % 77.1 % (36.0-66.0); PLATELET COUNT, AUTOMATED 192 10^3/uL (150-450); RED BLOOD COUNT 4.09 10^6/uL (4.30-6.10); WHITE BLOOD COUNT 9.9 10^3/uL (4.0-10.0)
[2019-06-28] MEDS: HEPARIN SOD (PORCINE) 5000 UNITS/ML VIAL SC SCH ×3 (06:12→21:01)
[2019-06-28 06:26] LABS: ALBUMIN 1.7 GM/DL (3.2-5.2); ALT/SGPT 27 U/L (12-78); BILIRUBIN,TOTAL 0.6 MG/DL (0.2-1.0); BLOOD UREA NITROGEN 13 MG/DL (7-18); CALCIUM LEVEL 7.6 MG/DL (8.8-10.2); CARBON DIOXIDE LEVEL 40 MEQ/L (21-32); CHLORIDE LEVEL 97 MEQ/L (98-107); CHOLESTEROL LEVEL 68 MG/DL (< 200); CPK CREATINE PHOSPHOKINASE 52 U/L (39-308); CREATININE FOR GFR 0.71 MG/DL (0.70-1.30); GLOMERULAR FILTRATION RATE > 60.0 (>42); GLUCOSE, FASTING 115 MG/DL (70-100); LDH LACTATE DEHYDROGENASE 150 U/L (87-241); MAGNESIUM LEVEL 2.1 MG/DL (1.8-2.4); PHOSPHORUS LEVEL 2.8 MG/DL (2.5-4.9); POTASSIUM SERUM 3.6 MEQ/L (3.5-5.1); SODIUM LEVEL 141 MEQ/L (136-145); TOTAL PROTEIN 4.5 GM/DL (6.4-8.2); TRIGLYCERIDES LEVEL 132 MG/DL (<150)
--- NOTE | 2019-06-28 08:23 | REP ---
Clinical: Status post intubation. Comparison: 06/27/2019. Findings: Endotracheal tube 3 cm above the wilber. Nasogastric tube courses below left hemidiaphragm. Left IJ line with tip in the SVC/brachiocephalic confluence. Bilateral lower lobe opacities (left greater than right) with possible left pleural effusion remain essentially unchanged. No pneumothorax. Skeletal structures stable. Impression: 1. Bilateral pleuroparenchymal changes essentially unchanged. 2. Lines and tubes in satisfactory position. Electronically Signed by Ashwin Hoffmann MD 06/28/2019 08:15 A
[2019-06-28] MEDS: CHLORHEXIDINE GLUCONATE 0.12 % 15ML UDC (PERIDEX ORAL RINSE) MT SCH ×2 (08:39→20:55)
[2019-06-28] MEDS: PANTOPRAZOLE 40MG INJ (PROTONIX) (C9113) IV SCH (08:40)
--- NOTE | 2019-06-28 11:20 | CCN ---
DATE: 06/26/2019 NOTE: Mr. Ulloa remains critically ill with acute respiratory failure secondary to decreased mental status. He also continues to require Levophed for unclear reasons. His brain MRI, MRA yesterday was unremarkable. He had his thoracic and cervical spine today which showed some fractures (no history of fall at this time, he more less slumped over onto his and then she lowered him to the floor) but no etiology for his other symptoms. On his sedation holiday he is following commands. He had increased thick sputum last night and a gram stain culture was sent. OBJECTIVE: PHYSICAL EXAMINATION VITAL SIGNS: Temperature 100.2 with a T-max of 100.4. GENERAL: Mr. Ulloa is lying in bed synchronous with a ventilator. HEENT: Anicteric, PERRL. Nares: Patent bilaterally. Oropharynx: ET tube and OG tubes in place. NECK: Supple, without JVD, without thyromegaly or masses, trachea is midline. LYMPH: Without cervical or supraclavicular lymphadenopathy. LUNGS: Symmetric excursion, good air entry, no wheeze, rhonchi or crackle on tidaled excursion. Normal I:E. No accessory muscle usage or retractions. CARDIOVASCULAR: Tachycardic, regular rate and rhythm, normal S1-S2, no murmur, rub or gallop appreciated. ABDOMEN: Positive bowel sounds, soft, nondistended, nontender, no hepatosplenomegaly or masses appreciated. EXTREMITIES: Cool but well perfused, without clubbing, cyanosis. There is positive unchanged edema. Palpable pedal pulses bilaterally. LABORATORY DATA: CBC from this morning shows a hemoglobin of 13.3, hematocrit of 42.2, platelet count 226,000, white blood cell count 17,700 with a differential of 81% neutrophils, 11% lymphocytes, 7% monocytes. Chemistry shows sodium 135, potassium 3.4, chloride 89, bicarbonate 36, anion gap 10, BUN 16, creatinine 1.0, glucose 169, calcium 8.2, phosphorus 2.4, magnesium 1.6, total bilirubin 1.2, AST 24, ALT 27, alkaline phosphatase 68, LDH 288, CK 141, total protein 4.8, albumin 2.1. I reviewed his chest x-ray as well as the report from earlier today. That x-ray showed normal appearing cardiac silhouette and pulmonary vascular shadows. Normal appearing mediastinal and hilar regions. He remains with left lower lobe opacity. It is unchanged. No new consolidated regions. IMPRESSION: 1. Acute respiratory failure secondary to decreased mental status. I have questioned whether he truly had a cardiac arrest given that he is difficult even to feel pulses on his wrists when we know he has them, and EMS team went for wrist pulses and did not feel carotid. He also responded to two round of CPR without any medications which would be very unusual. 2. Hypotension. I suspect this is multifactorial. I suspect some of this may still be hypovolemia as I suspect he has a high filling pressures given what is likely pulmonary retention. He also was on sedation and required increased sedation because of the requirement for MRI. 3. Left lower lobe opacity, likely aspiration pneumonia on Zosyn. Sputum culture pending. 4. Diabetes mellitus, borderline. 5. Obesity. 6. Diastolic dysfunction. 7. Chronic hypercapnia, unknown etiology, question untreated obstructive sleep apnea, plus or minus obesity hypoventilation. 8. Deep vein thrombosis (DVT) prophylaxis with subcutaneous heparin. 9. Stress ulcer prophylaxis with proton pump inhibitor. 10. Nutrition, starting tube feeds. RECOMMENDATIONS: 1. I await neurology input. I have verbally been told their suspicions, but have not seen a dictation and family is anxiously awaiting to speak with them. 2. Will look to extubate tomorrow if possible. However, I am concerned that we do not know the underlying event. I question whether this may have been laryngospasm related aspiration causing him to go apneic. That would typically resolve on its own with time. 3. Continue on Zosyn. Will de-escalate antibiotics as culture results are needed. 4. I briefly discussed with the family the possibility of a PEG tube. Regardless of the etiology of this process, he has not been able to eat for quite some time and is aspirating. They do not feel that he would want that. 5. We will also have to have discussions with the family that if we do extubated him, what their wishes are should we need to reintubate him. Hopefully, he would be able to participate in the discussions. Again, this is likely secondary to progressive neurologic process, possibly ALS. 6. Will start tube feeds today. 7. Will replace electrolytes. 8. I discussed the above regarding the feeding tube and ventilator with family today consisting of a granddaughter, granddaughters friend and the patient's . They all appear to have limited ability to understand what is going on with him and need to speak directly with neurology. For simplicity sake and not to confuse them, I did not discuss neurology in depth except to give them the results of the scans. CRITICAL CARE TIME: 40 minutes not including procedure time.
--- NOTE | 2019-06-28 11:50 | CCN ---
DATE: 06/27/2019 NOTE: Mr. Ulloa remains critically ill with acute respiratory failure. This initially was secondary to his decreased mental status though now appears to be secondary to a left-sided pneumonia. He had remained on vasopressors overnight though those were able to be decreased some this morning. He had a moderate amount of secretions this morning. On a sedation holiday, he was following commands. We did tolerate pressure support of 12/5 all night last night. However, in dropping it down to 5 today, his rapid shallow breathing index increased into the 120s. He also was not taking large breaths. A left-sided catheter was introduced and a significant amount of mucous was removed including small plugs. OBJECTIVE: PHYSICAL EXAMINATION: GENERAL: Mr. Ulloa is lying in bed, in no acute distress. He will follow commands. He is synchronous with the ventilator. Temperature 99.5 with a maximum temperature (T-max) of 100.4. HEENT: Anicteric, pupils 3-4 mm and reactive. Nares patent bilaterally. Oropharynx: There are some secretions that could easily be removed. Endotracheal (ET) tube is also in place. NECK: Supple, without jugular venous distention (JVD), without thyromegaly or masses. Trachea is midline. LYMPHATICS: Without cervical or supraclavicular lymphadenopathy. LUNGS: Symmetric excursion, decreased breath sounds at the left base. Occasional rhonchi. No wheeze. No significant crackle. Normal I:E. No accessory muscle usage or retractions. CARDIOVASCULAR: Regular rate and rhythm with a normal S1, S2, no murmur, rub or gallop appreciated. ABDOMEN: Positive bowel sounds, soft, nondistended, no hepatosplenomegaly or masses appreciated. EXTREMITIES: Decreased edema. Palpable pedal pulses bilaterally. The right foot is more edematous than the left and has erythema over it. He has a lesion on the top of his right foot. LABORATORY DATA: CBC shows a hemoglobin 12.5, hematocrit 40.8, platelet count 193,000, and white blood cell count 12,900 with a differential of 77% neutrophils, 16% lymphocytes, and 7% monocytes. Chemistry shows sodium 139, potassium 3.5, chloride 94, bicarbonate 38, anion gap 7, BUN 15, creatinine 0.9, glucose 119, calcium 8.2, phosphorus 2.9, magnesium 2.1, total bilirubin 0.9, AST 21, ALT 28, alkaline phosphatase 83, LDH 157, CK 64, total protein 4.9, albumin 1.9. Yesterday's intake and output were 2180 in and 3330 out making him negative 1150. Thus far today 550 in and 675 out making him negative 125. Weight 119 kg. MICROBIOLOGY: Sputum Gram-stain was positive for a few Staphylococcus aureus. I reviewed his chest x-ray as well as the report from earlier today. That x-ray showed a normal-appearing cardiac silhouette and pulmonary vascular shadows. The right lung is clear. The left lung has increased opacity to about the mid lung level. Endotracheal tube is in good position. IMPRESSION: 1. Acute respiratory failure, initially secondary to decreased mental status and now secondary to increased secretions, from left-sided pneumonia. 2. Hypotension requiring vasopressor support. I feel some of this is secondary to sedation as we were able to markedly decrease it once he was on his sedation holiday and went through his weaning trial. I do not feel that this is secondary to severe sepsis at this time, as he has had no increase in his minute ventilation requirements. 3. Lower lobe atelectasis/pneumonia. Sputum grew Staphylococcus aureus though only a few but we will aim antibiotics at this agent. 4. Decreased mental status leading to intubation. I question whether or not he may have had laryngeal spasm as the cause of his apneic episode leading to intubation. 5. Chronic hypercapnia of unknown etiology, question obesity hypoventilation plus or minus obstructive sleep apnea. 6. Diabetes mellitus, borderline, on sliding scale insulin. 7. Obesity. 8. Diastolic dysfunction. 9. Deep vein thrombosis (DVT) prophylaxis with subcutaneous heparin number. 10. Stress ulcer prophylaxis with proton pump inhibitor. 11. Infectious disease (ID), on Zosyn. RECOMMENDATIONS: 1. We will discontinue Zosyn at this point but we will start nafcillin. 2. Methicillin-resistant Staphylococcus aureus (MRSA) swab. 3. We will do bronchoscopy secondary to mal clearance of secretions. 4. We will use a left-sided catheter. 5. Continue to wean vasopressors. 6. Appreciate neurology's input. Family is awaiting conversation with neurology later today number. 7. When family is available, we will again address whether they are considering a feeding tube as it is clear that he is not going to be able to support himself nutritionally on his own. CRITICAL CARE TIME: 35 minutes not including procedure time.
[2019-06-28] MEDS: NS 1,000 ML IV SCH (13:09)
[2019-06-28] MEDS ORDERED: NS 1,000 ML IV ONE (18:30)
[2019-06-29] VITALS (26 sets, daily range): BP systolic 91–147; BP diastolic 48–78
[2019-06-29] MEDS: IPRATROPIUM 0.5MG/ALBUTEROL 2.5MG INH SOL UD 3ML (DUONEB)(J7620) NEB SCH ×4 (00:11→11:43)
[2019-06-29] MEDS: NAFCILLIN SOD 1 GM in D5W MINI-BAG PLUS 50 ML IV SCH ×3 (00:20→12:22)
[2019-06-29] MEDS: PROPOFOL 1,000 MG in IV 1 EA IV SCH ×4 (00:40→09:54)
[2019-06-29] MEDS: NS 1,000 ML IV SCH ×2 (03:57→13:24)
[2019-06-29 05:18] LABS: BASO % 0.1 % (0.0-1.0); EOS # 0.2 10^3/uL (0.0-0.5); EOS % 2.1 % (0.0-3.0); HEMOGLOBIN 10.8 g/dl (13.5-17.5); LYMPH # 1.2 10^3/uL (1.5-5.0); LYMPH % 15.1 % (24.0-44.0); MEAN CORPUSCULAR HEMOGLOBIN 27.6 pg (27.0-33.0); MEAN CORPUSCULAR HGB CONC 29.2 g/dl (32.0-36.5); MEAN CORPUSCULAR VOLUME 94.6 fl (80.0-96.0); MONO # 0.7 10^3/uL (0.0-0.8); MONO % 9.4 % (0.0-5.0); NEUTROPHILS # 5.7 10^3/uL (1.5-8.5); PLATELET COUNT, AUTOMATED 195 10^3/uL (150-450); RED BLOOD COUNT 3.91 10^6/uL (4.30-6.10); WHITE BLOOD COUNT 7.8 10^3/uL (4.0-10.0)
[2019-06-29 05:26] LABS: ALBUMIN 1.7 GM/DL (3.2-5.2); ALT/SGPT 39 U/L (12-78); BILIRUBIN,TOTAL 0.5 MG/DL (0.2-1.0); BLOOD UREA NITROGEN 14 MG/DL (7-18); CALCIUM LEVEL 8.1 MG/DL (8.8-10.2); CARBON DIOXIDE LEVEL 38 MEQ/L (21-32); CHLORIDE LEVEL 99 MEQ/L (98-107); CHOLESTEROL LEVEL 80 MG/DL (< 200); CPK CREATINE PHOSPHOKINASE 57 U/L (39-308); CREATININE FOR GFR 0.69 MG/DL (0.70-1.30); GLOMERULAR FILTRATION RATE > 60.0 (>42); GLUCOSE, FASTING 114 MG/DL (70-100); LDH LACTATE DEHYDROGENASE 131 U/L (87-241); PHOSPHORUS LEVEL 2.3 MG/DL (2.5-4.9); POTASSIUM SERUM 3.8 MEQ/L (3.5-5.1); SODIUM LEVEL 141 MEQ/L (136-145); TOTAL PROTEIN 5.1 GM/DL (6.4-8.2); TRIGLYCERIDES LEVEL 129 MG/DL (<150)
[2019-06-29] MEDS: HumaLOG INSULIN (NovoLOG) PER UNIT SC SCH ×3 (06:05→12:39)
[2019-06-29] MEDS: HEPARIN SOD (PORCINE) 5000 UNITS/ML VIAL SC SCH ×2 (06:06→14:00)
[2019-06-29] MEDS: NYSTATIN 100,000 UNITS/GM TOPICAL PWD 15 GM TOP PRN (06:46)
--- NOTE | 2019-06-29 07:56 | CCN ---
DATE: 06/28/2019 NOTE: Mr. Ulloa remains critically ill with acute respiratory failure initially secondary to decreased mental status and now, in large part secondary to left lower lobe pneumonia. On his sedation holiday this morning, he was following commands and did not indicate any discomfort. He was weaned off of Levophed this morning. His secretions remain moderate. OBJECTIVE/PHYSICAL EXAMINATION: General: Mr. Ulloa is lying in bed no acute distress. He is synchronous with the ventilator. Temperature 98.6 with a T-max of 99.1. Pulse 110. Respiratory rate 16. Blood pressure 125/62 with a MAP of 83, SPO2 at 90% at FiO2 of 0.45. HEENT: Anicteric, PERRL. Nares: Patent bilaterally. Oropharynx with ET tube and OG tube in place. Neck: Supple. Trachea is midline. Lungs: Symmetric excursion, good air entry, crackles at the left base, no significant rhonchi. No wheeze. Normal I:E. No accessory muscle usage or retractions. Cardiovascular: Tachycardiac, regular rhythm, normal S1 and S2 No murmur, rub or gallop appreciated. Abdomen: Positive bowel sounds, soft, nondistended, nontender, no hepatosplenomegaly or masses appreciated. Extremities: Positive edema, erythematous region on the right lower extremity is unchanged. His left foot also looks mildly erythematous this morning. LABORATORY DATA: CBC from this morning showed a hemoglobin 11.4, hematocrit 38.4, platelet count of 192,000, white blood cell count 9900 with a differential of 77% neutrophils, 13% lymphocytes and 8% monocytes. Chemistry shows sodium 141, potassium 3.6, chloride 97, bicarbonate 40, anion gap 4, BUN 13, creatinine 0.7, glucose 115, calcium 7.6, phosphorus 2.8, magnesium 2.1, total bilirubin 0.6, AST 21, ALT 27, alkaline phosphatase 79, LDH 150, CK 52, total protein 4.5, albumin 1.7. Yesterday ins and outs were 4246 in 2410 out making him positive 1836. Thus far today, 1923 in and 900 out making him positive 1023. Weight listed 133.2 (marked difference from yesterday and likely an error). I reviewed his chest x-ray as well as report from earlier today. That x-ray showed normal-appearing cardiac silhouette and pulmonary vascular shadows. There remains a left lower lobe opacity with perhaps slight increased aeration. There appears to slightly increased right lower lobe opacity. ET tube is in good position. IMPRESSION: 1. Acute respiratory failure secondary to decreased mental status and now compounded by pneumonia leading mechanical ventilation. 2. Left lower lobe and possibly right lower lobe pneumonia. Sputum has grown Staph aureus, but only a few organisms. It is sensitive to oxacillin. 3. Bulbar symptoms preceding intubation, appreciate neurology's input. 4. Chronic hypercapnia of unknown etiology, question obesity hypoventilation plus or minus a component of obstructive sleep apnea number. 5. Diabetes mellitus, borderline, on sliding scale insulin. 6. Obesity. 7. Diastolic dysfunction. 8. Deep vein thrombosis and stress ulcer prophylaxis in place. 9. ID, on nafcillin. RECOMMENDATIONS: Will go on to a weaning trial. Will continue nafcillin. Given that it was only a few organisms on the culture, will resend the sputum culture. Continue supportive care. ADDENDUM: Mr. Ulloa went on to a weaning trial consisting of pressure support of 5/5. He did not pass that trial. He started the trial on a FiO2 of 0.45 and ended at FiO2 of 0.8. His rapid shallow breathing index was in 140s. I could not get him to spontaneously take in a deep breath. Therefore, a negative inspiratory force (NIF) was done, which was only -8 to -10. He was therefore put back on full support that consisted of pressure support of 12 and a PEEP of 5. Given the NIF information, I am concerned that some of the difficulty in weaning him may be secondary to respiratory weakness related to his underlying neurologic difficulty. Will continue to do weaning trials on a daily basis as well as do NIFs to see if there is any improvement or worsening. His family was updated that he did not pass his weaning trial today and that we would retry tomorrow. Critical care time 40 minutes, not including procedure time.
--- NOTE | 2019-06-29 08:12 | REP ---
Clinical: Intubation. Comparison: 06 28 19. Findings: Endotracheal tube approximately 4 cm above the wilber. The gastric tube courses below left hemidiaphragm. Left IJ line with tip in the brachiocephalic vein. Bilateral lower lobe opacities (left greater than right) essentially unchanged. No pneumothorax. Skeletal structures stable. Impression: 1. Lines and tubes in satisfactory position. 2. Pulmonary opacities (left greater than right) unchanged. Electronically Signed by Ashwin Hoffmann MD 06/29/2019 08:03 A
[2019-06-29] MEDS: CHLORHEXIDINE GLUCONATE 0.12 % 15ML UDC (PERIDEX ORAL RINSE) MT SCH (08:21)
[2019-06-29] MEDS: PANTOPRAZOLE 40MG INJ (PROTONIX) (C9113) IV SCH (08:21)
[2019-06-29] MEDS: MIDAZOLAM INJ 2 MG/2 ML VIAL (J2250) IV PRN (12:22)
[2019-06-29] MEDS ORDERED: LORazepam 2 MG/ML VIAL (J2060) IV PRN (14:00)
[2019-06-29] MEDS ORDERED: ONDANSETRON 4MG/2ML VIAL (J2405) IV PRN (14:00)
[2019-06-29] MEDS ORDERED: BISACODYL 10 MG SUPP PR PRN (14:00)
[2019-06-29] MEDS ORDERED: ATROPINE SULFATE 1% OP SOLN 2 ML BTL SL PRN (14:00)
[2019-06-29] MEDS ORDERED: HYOSCYAMINE SULFATE 0.125 MG SUBL TABLET PO PRN (14:00)
[2019-06-29] MEDS ORDERED: FLEET ENEMA PR PRN (14:00)
[2019-06-29] MEDS ORDERED: MORPHINE 2 MG/ML 1ML VIAL (J2270) IV PRN ×2 (14:00→14:15)
[2019-06-29] MEDS ORDERED: SCOPOLAMINE 1MG TRANSDERMAL PATCH TOP PRN (14:00)
[2019-06-29] MEDS: MORPHINE 2 MG/ML 1ML VIAL (J2270) IV PRN ×2 (14:00→14:15)
--- NOTE | 2019-06-30 07:55 | CCN ---
DATE: 06/29/2019 Mr. Ulloa remains critically ill with acute respiratory failure, initially felt secondary to decreased mental status and then in large part secondary to left lower lobe pneumonia. However, it has become increasingly clear over the past couple of days. His failure is now in large part secondary to progressive weakness. He had presented with compensated hypercapnia. It was initially thought possibly secondary to obesity hypoventilation and untreated sleep apnea. However, its become increasingly clear that this is most likely again secondary to neurologic weakness of the chest and progressive hypercapnia. We are told today by his that he could not even suck up any fluids with a straw the day before his admission. This is consistent with a negative inspiratory force (NIF) that we had seen yesterday of -8 to -10. His secretions are decreased to mild; and however, on a weaning trial today, he was not successful with rapid shallow breathing rate in [id number]. He could not take in a deep breath on command. His NIF again is less than negative 8 to -10. No hemodynamic events overnight. OBJECTIVE: PHYSICAL EXAMINATION: General: Mr. Ulloa is lying in bed in no acute distress. He is synchronous with the ventilator. Vital signs: Temperature 97.9 with a T-max of 98.8, pulse 103, respiratory rate 16, blood pressure 106/50 with a MAP of 68, SPO2 95% on FiO2 0.40. HEENT: Anicteric, PERRL. Nares: Patent bilaterally. Oropharynx: ET tube and OG tube in place. Neck: Supple, without thyromegaly or masses, trachea is midline. Lymph: No cervical or supraclavicular lymphadenopathy. Lungs: Symmetric excursion, good air entry, a few left lower lobe crackles. No rhonchi or wheezes. Normal I:E. No accessory muscle use or retractions. Cardiovascular: Tachycardiac, regular rhythm, normal S1-S2, no murmur, rub, or gallop appreciated. Abdomen: Normoactive bowel sounds, soft, nondistended, he does not indicate tenderness, no hepatosplenomegaly or masses appreciated. Extremities: Positive edema, without clubbing, cyanosis or cyanosis, palpable pedal pulses bilaterally. Decreased erythema on the right lower extremity. LABORATORY DATA: CBC showed a hemoglobin 10.8, hematocrit 37, platelet count 195,000, white blood cell count 7800 and the differential is 73% neutrophils, 15% lymphocytes, 9% monocytes. Chemistry shows a sodium 141, potassium 3.8, chloride 99, bicarbonate 38, anion gap 4, BUN 14, creatinine 0.7, glucose 114, calcium 8.1, phosphorus 2.3, magnesium 2, total bilirubin 0.4, AST 32, ALT 39, alkaline phosphatase 55, LDH 131, CK 57, total protein 5.1, albumin 1.70. I reviewed his chest x-ray, as well as report from earlier today. That x-rays showed normal-appearing cardiac silhouette and pulmonary vascular shadows. Normal appearing mediastinal and hilar regions. Left lower lobe opacity, which from my view had decreased compared to yesterday. Minimal right lower lobe opacity. ET tube in good position. Yesterday's input and output were 4332 in and 1420 out making him positive 2918. Thus far today 1480 in and 535 out making him positive 945. IMPRESSION: 1. Acute respiratory failure Initially secondary to decreased mental status possibly compounded by a left lower lobe pneumonia leading to mechanical ventilation. However, it has become increasingly clear that a lot of his difficulties are secondary to respiratory muscle weakness. 2. Left lower lobe and possibly right lower lobe pneumonia. Sputum has grown only a few Staphylococcus aureus. He is clinically improved on nafcillin. 3. Bulbar symptoms preceding intubation. He is felt to have a progressive neurologic disease. It has now become increasingly clear that he had respiratory muscle weakness prior to admission. 4. Chronic hypercapnia. Most likely a significant portion is secondary to neuromuscular weakness of the chest. It may be compounded by obesity hypoventilation plus or minus obstructive sleep apnea. 5. Diabetes mellitus, borderline, on sliding scale insulin. 6. Obesity. 7. Diastolic dysfunction. 8. Deep vein thrombosis (DVT) and stress ulcer prophylaxis in place. 9. Infectious disease on nafcillin. RECOMMENDATIONS: 1. We went on to a weaning trial this morning as discussed above. 2. His NIF was checked again and it was -8 to -10. His family had discussions last night in deciding that they would most likely withdraw care. ADDENDUM: After further discussion, his decided that she wanted to withdraw care. I discussed with her that he was not "optimized" in regards to his secretions. However, given his underlying degenerative disorder, I told her I would support any decision that she made. At this point, she does not want to go any further and the decision was to withdraw. He was extubated and placed on comfort measures. Critical care time 40 minutes not including procedure time.
--- NOTE | 2019-06-30 15:35 | RO ---
DATE OF PROCEDURE: PREOPERATIVE DIAGNOSIS: Mal clearance of secretions. POSTOPERATIVE DIAGNOSIS: Mal clearance of secretions. PROCEDURE: Bronchoscopy with aspiration of secretions. SURGEON: Monica Thompson MD [employer]ICER AND INSTALLER: ANESTHESIA: DESCRIPTION OF PROCEDURE: [place] procedures followed. Mr. Ulloa was preoxygenated on 100% oxygen. He was bagged through the procedure. 1 mL of 1% lidocaine was introduced into the endotracheal tube. Following this a bronchoscope was introduced and both the left and right lungs were examined. The right lung showed normal anatomy and normal appearing mucosa. Minimal secretions. Left lung showed normal anatomy and normal mucosa. There were no discrete plugs but there was some welling up of secretions particularly in the left lower lobe that were evacuated. Following this, the bronchoscope was withdrawn. Tolerated well. FINDINGS: [place] up of secretions in left lower lobe but no discrete mucus plugs. SPECIMENS: None.
--- NOTE | 2019-06-30 17:53 | DSES ---
DATE OF ADMISSION: 06/25/2019 DATE OF DISCHARGE: 06/29/2019 CAUSE OF : Progressive neurologic disease process. SECONDARY DIAGNOSES: 1. Left lower lobe pneumonia. 2. Chronic hypercapnia 3. Diabetes mellitus, borderline. 4. Diastolic dysfunction. CONSULTANTS: Neurology. PROCEDURES: 1. Intubation. 2. Right internal jugular placement. HOSPITAL COURSE: Mr. Ulloa was admitted on 06/25/2019 after becoming unresponsive. He had slumped over and his had caught him lowered him to the floor and then contacted 911. He may have had cardiopulmonary arrest. CPR was done, but no medications were given. On arrival to the emergency department, he had poor respiratory effort and was intubated. It was clear on his presenting chest CT scan he had predominantly left lower lobe and some right lower lobe opacities consistent with pneumonic process. It became clear that the left side was new pneumonic process. He was initially placed on Zosyn. When the sputum was positive for Staphylococcus aureus (although only a few colonies) antibiotic was changed to nafcillin and he was clinically improving regards to his pneumonic process. Because of bulbar that his history had been, he had difficulty since the dating back to October, with being able to swallow and speak. Mr. Ulloa history was showing he had progressive difficulties with swallowing and speech starting around October. It was to the point that he could not even take in liquids. His had noted that the night prior to coming to the emergency department he did not have the strength to suck fluid out of a straw. He had lost 55 pounds over that time. Neurology had evaluated him and felt this was progressive neurologic process, but it would take time to determine the exact cause. Differential included amyotrophic lateral sclerosis, myasthenia gravis, a variant of muscular dystrophy or other. Mr. Ulloa had made it clear to his family that he would not want any tubes in him. In fact, it was consistent with his refusal or his declining any workup during this time course of progression. He had failed weaning trials and the failure was not felt to be secondary to the pneumonic process, but rather is general muscle weakness. NIFs had two successful weaning trials, were not measurable meaning they were likely some where between -8 and -10. Myself and neurology had discussed with his that we would not certain that he would come off the ventilator to be able to participate in discussions. It was clear that he would require PEG tube. His had discussions with the family and they decided that he would not want a PEG tube and that he would not want tracheostomy. They requested that he be extubated. I had talked with him and is not "optimized" and that he still had secretions from his improving pneumonic process. They did not want to wait any longer. Given his underlying condition, it was felt that the pneumonic process was not significantly contributing to his respiratory difficulties (i.e. he did not have enough inspiratory force to suck a straw prior to developing pneumonia and his hypercapnia likely related to muscle weakness, plus his failure with essentially un-recordable NIFs.) I felt it was reasonable to withdraw care. Care was withdrawn and he shortly after extubation (14:14). DISPOSITION: [facility].
[2019-07-08 14:07] LABS: ACETYLCHOLINE RCPTOR BINDING A < 0.03 nmol/L (0.00-0.24); ACETYLCHOLINE RCPTOR BLOCK AB 20 % (0-25); ACETYLCHOLINE RCPTOR MODULATIN <12 % (0-20); STRIATIONAL ANTIBODIES Negative (Neg:<1:40)
== END 2019-06-29 15:30 | disposition expired | DRG 296 ==
LOC: M ED 00:23 → EEVIPCON 02:44 → M ED INP 02:44 → M ICU 03:52
PROVIDERS: ADMIT Internal Medicine Pulmonary Disease; ATTEND Internal Medicine Pulmonary Disease
PROC: 0BH17EZ Insertion of Endotracheal Airway into Trachea, Via Natural or Artificial Opening (ICD-10-PCS; 2019-06-25)
PROC: 5A1955Z Respiratory Ventilation, Greater than 96 Consecutive Hours (ICD-10-PCS; 2019-06-25)
PROC: 05HF33Z Insertion of Infusion Device into Left Cephalic Vein, Percutaneous Approach (ICD-10-PCS; 2019-06-25)
PROC: 0B9F8ZZ Drainage of Right Lower Lung Lobe, Via Natural or Artificial Opening Endoscopic (ICD-10-PCS; principal; 2019-06-27)
PROC: 0B9J8ZZ Drainage of Left Lower Lung Lobe, Via Natural or Artificial Opening Endoscopic (ICD-10-PCS; 2019-06-27)
DX: I46.9 Cardiac arrest, cause unspecified (principal); J69.0 Pneumonitis due to inhalation of food and vomit; G12.21 Amyotrophic lateral sclerosis; J98.11 Atelectasis; E66.9 Obesity, unspecified; D75.1 Secondary polycythemia; R73.03 Prediabetes; I27.20 Pulmonary hypertension, unspecified; Z51.5 Encounter for palliative care; R06.89 Other abnormalities of breathing; E78.5 Hyperlipidemia, unspecified; I10 Essential (primary) hypertension; Z68.37 Body mass index [BMI] 37.0-37.9, adult; R13.10 Dysphagia, unspecified; R47.1 Dysarthria and anarthria; Z79.82 Long term (current) use of aspirin; Z79.899 Other long term (current) drug therapy; Z79.84 Long term (current) use of oral hypoglycemic drugs